=== PATIENT | male | born 1970 | race Hispanic/Latino ===

== ENCOUNTER 2019-09-01 18:44 | Inpatient (IN) | payer OTHER ==
[~2019-09-01] VITALS: Ht 172.7 cm; Wt 80.7 kg
--- OUTSIDE RECORDS SUMMARY | 2019-09-01 18:47 | XMS REPORT ---
Author Author [facility] Address Unknown Phone Unavailable Care Team Providers Care Hand Endband Cutter Name Role Phone Unavailable Unavailable Payers Payer Name Policy Type Policy Number Effective Date Expiration Date Problems This patient has no known problems. Allergies, Adverse Reactions, Alerts Allergy Name Allergy Type Status Severity Reaction(s) Onset Date Inactive Date Treating Clinician Comments No Known Allergies DA Active U 2018-08-24 00:00:00 No Known Allergies DA Active U 2017-09-12 00:00:00 Medications This patient has no known medications.
[2019-09-01] MEDS ORDERED: IPRATROPIUM BROMIDE 0.02% 2.5 ML NEB NEB STA (19:19)
[2019-09-01] MEDS ORDERED: ALBUTEROL SULF 0.083% NEB SOLN 3 ML NEB NEB STA (19:19)
--- NOTE | 2019-09-01 19:27 | NUR ---
called respiratory for neb tx
[2019-09-01] MEDS ORDERED: ASPIRIN 81 MG CHEW TAB PO ONE (19:30)
[2019-09-01] MEDS ORDERED: LISINOPRIL 20 MG TAB PO ONE (19:45)
--- NOTE | 2019-09-01 20:09 | Diagnostic Imaging Report ---
EXAMINATION: CHEST 2 VIEWS INDICATION: SOB, Cough. COMPARISON: None FINDINGS: TUBES and LINES: There is a cardiac loop recorder. LUNGS: Lungs are moderately inflated. There is patchy opacity in the left lower lobe. No evidence of pulmonary edema. PLEURA: No pleural effusion or pneumothorax. HEART AND MEDIASTINUM: The cardiomediastinal silhouette is mildly enlarged. BONES AND SOFT TISSUES: No acute osseous lesion. Soft tissues are unremarkable. UPPER ABDOMEN: No free air under the diaphragm. IMPRESSION: Patchy opacity in the left lower lobe, which may reflect atelectasis or early pneumonia in the appropriate clinical setting. Recommend follow-up chest radiograph in 6-8 weeks to assess for resolution. Bilateral bronchial wall thickening, suggestive of bronchitis. Mild cardiomegaly. Signed by: Dr. Diego Hawthorne MD on 09/01/2019 8:06 PM
[2019-09-01 20:17] LABS: BASOPHILS % 0.5 % (0.0-1.0); EOSINOPHILS # (AUTO) 0.2 (0.0-0.4); EOSINOPHILS % 3.2 % (0.0-6.0); HEMATOCRIT 46.9 % (38.2-49.6); HEMOGLOBIN 14.5 g/dL (14.0-18.0); LYMPHOCYTES # (AUTO) 1.3 (1.0-3.2); LYMPHOCYTES % 23.3 % (18.0-39.1); MEAN CORPUSCULAR HGB CONC 30.9 g/dL (31-35); MEAN CORPUSCULAR VOLUME 90.7 fL (81-99); MONOCYTES # (AUTO) 0.4 (0.2-0.8); MONOCYTES % 7.2 % (4.4-11.3); NEUTROPHILS # (AUTO) 3.7 (2.1-6.9); NEUTROPHILS % 65.6 % (38.7-80.0); PLATELET COUNT 156 x10e3/uL (140-360); RED BLOOD COUNT 5.17 x10e6/uL (4.3-5.7); RED CELL DISTRIBUTION WIDTH 13.5 % (11.7-14.4)
[2019-09-01 20:27] LABS: INR 0.88; PROTHROMBIN TIME 12.4 seconds (11.9-14.5)
[2019-09-01 20:28] LABS: PARTIAL THROMBOPLASTIN TIME 28.7 seconds (23.8-35.5)
[2019-09-01 20:38] LABS: ALANINE AMINOTRANSFERASE 28 IU/L (0-55); ALBUMIN 3.8 g/dL (3.5-5.0); ALBUMIN/GLOBULIN RATIO 1.3 (0.8-2.0); ALKALINE PHOSPHATASE 67 IU/L (40-150); ANION GAP 15.4 mmol/L (8-16); BLOOD UREA NITROGEN 30 mg/dL (7-26); BUN/CREATININE RATIO 15 (6-25); CALCIUM 9.4 mg/dL (8.4-10.2); CARBON DIOXIDE 28 mmol/L (22-29); CHLORIDE 102 mmol/L (98-107); CREATINE KINASE 49 IU/L (30-200); CREATININE, SERUM 1.99 mg/dL (0.72-1.25); EST GLOMERULAR FILTRATION RATE 36 ML/MIN (60-); GLUCOSE 201 mg/dL (74-118); POTASSIUM 4.4 mmol/L (3.5-5.1); SODIUM 141 mmol/L (136-145)
[2019-09-01] MEDS ORDERED: METOPROLOL TARTRATE INJ 1 MG/ML VIAL IV ONE (21:15)
[2019-09-01] MEDS ORDERED: ENOXAPARIN SODIUM INJ 100 MG/ML SYR SC ONE (21:15)
[2019-09-01] MEDS ORDERED: SODIUM CHLORIDE 0.9% 1000ML 1,000 ML IV STA (21:17)
[2019-09-01] MEDS ORDERED: SODIUM CHLORIDE 0.9% 1000ML 1,000 ML IV ONE (21:30)
[2019-09-01] MEDS ORDERED: ENOXAPARIN INJ 80 MG/0.8 ML SYR SC ONE ×2 (21:38→23:15)
[2019-09-01] MEDS: CEFTRIAXONE SOD 1 GM/NS 50 ML 50 ML IV SCH (21:56)
[2019-09-01 22:46] VITALS: BP 134/94
[2019-09-01 22:57] VITALS: BP 134/94
[2019-09-01] MEDS ORDERED: DEXTROSE 50% SYRINGE 50 ML IV PRN (23:00)
[2019-09-01] MEDS: AZITHROMYCIN 500MG/NS 250 ML 250 ML IV SCH (23:29)
[2019-09-01] MEDS: METOPROLOL TARTRATE 25 MG TAB PO SCH (23:29)
[2019-09-02] VITALS (7 sets, daily range): BP systolic 121–134; BP diastolic 78–101
[2019-09-02] MEDS ORDERED: METFORMIN HCL500 MG PO (00:09)
[2019-09-02] MEDS ORDERED: PRINIVIL20 MG PO (00:09)
[2019-09-02] MEDS: LEVALBUTEROL HCL SOLN NEBU 0.63 MG/3 ML NEB INH PRN ×3 (00:20→18:51)
[2019-09-02] MEDS: IPRATROPIUM BROMIDE 0.02% 2.5 ML NEB NEB SCH ×5 (00:20→18:51)
[2019-09-02 01:46] LABS: CREATINE KINASE MB 1.5 ng/mL (0-5.0)
[2019-09-02 06:17] LABS: BASOPHILS % 0.2 % (0.0-1.0); EOSINOPHILS # (AUTO) 0.2 (0.0-0.4); EOSINOPHILS % 3.7 % (0.0-6.0); HEMOGLOBIN 13.2 g/dL (14.0-18.0); LYMPHOCYTES # (AUTO) 1.2 (1.0-3.2); LYMPHOCYTES % 28.2 % (18.0-39.1); MEAN CORPUSCULAR HEMOGLOBIN 28.4 pg (28-32); MEAN CORPUSCULAR HGB CONC 31.4 g/dL (31-35); MEAN CORPUSCULAR VOLUME 90.5 fL (81-99); MONOCYTES # (AUTO) 0.4 (0.2-0.8); MONOCYTES % 8.6 % (4.4-11.3); NEUTROPHILS # (AUTO) 2.4 (2.1-6.9); NEUTROPHILS % 59.1 % (38.7-80.0); RED BLOOD COUNT 4.64 x10e6/uL (4.3-5.7); RED CELL DISTRIBUTION WIDTH 13.5 % (11.7-14.4)
[2019-09-02 06:38] LABS: ALBUMIN 3.3 g/dL (3.5-5.0); ALBUMIN/GLOBULIN RATIO 1.3 (0.8-2.0); ANION GAP 11.5 mmol/L (8-16); CALCIUM 9.7 mg/dL (8.4-10.2); CREATININE, SERUM 1.69 mg/dL (0.72-1.25); POTASSIUM 4.5 mmol/L (3.5-5.1)
--- NOTE | 2019-09-02 06:47 | Diagnostic Imaging Report ---
EXAMINATION: CHEST SINGLE (PORTABLE) INDICATION: Pneumonia. COMPARISON: Chest radiograph 09/01/2019. FINDINGS: TUBES and LINES: There is a cardiac loop recorder. LUNGS: Lungs are moderately inflated. There is patchy opacity in the left lower lobe. Central vascular congestion. Bronchial wall thickening. PLEURA: No pleural effusion or pneumothorax. HEART AND MEDIASTINUM: The cardiomediastinal silhouette is mildly enlarged. BONES AND SOFT TISSUES: No acute osseous lesion. Soft tissues are unremarkable. UPPER ABDOMEN: No free air under the diaphragm. IMPRESSION: Patchy opacity in the left lower lobe, which may reflect atelectasis or early pneumonia in the appropriate clinical setting. Bilateral bronchial wall thickening, suggestive of bronchitis. Mild cardiomegaly with central vascular congestion. Signed by: Dr. Diego Hawthorne MD on 09/02/2019 6:44 AM
[2019-09-02 06:56] LABS: CREATINE KINASE MB 1.8 ng/mL (0-5.0)
[2019-09-02] MEDS: INSULIN REGULAR, HUMAN 100 UNIT/1 ML 3ML VIAL SQ SCH ×4 (07:30→21:04)
[2019-09-02] MEDS: AZITHROMYCIN 500MG/NS 250 ML 250 ML IV SCH (08:32)
[2019-09-02] MEDS: ASPIRIN 81 MG ENTERIC COATED PO SCH (08:32)
[2019-09-02] MEDS: METOPROLOL TARTRATE 25 MG TAB PO SCH ×2 (08:33→18:10)
[2019-09-02 09:12] LABS: PLATELET COUNT 117 x10e3/uL (140-360)
[2019-09-02] MEDS: GUAIFENESIN/CODEINE 10 ML CUP PO PRN ×2 (09:50→18:10)
[2019-09-02 14:34] LABS: CREATINE KINASE MB 1.9 ng/mL (0-5.0)
--- NOTE | 2019-09-02 19:42 | Consultation ---
DATE OF CONSULTATION: 09/02/2019 Cardiology Consult Note REASON FOR CONSULT: Atrial fibrillation. CHIEF COMPLAINT: Shortness of breath. HISTORY OF PRESENT ILLNESS: The patient is a 48-year-old man, known history of irregular heart rhythm and atrial fibrillation in the past, status post loop recorder, follows with Dr. Collier and Dr. Cadet as an outpatient, who presents with worsening shortness of breath and wheezing after developing a URI about a week ago, received breathing treatments in the ER and shortness of breath improved significantly, however, was noted to be in atrial fibrillation with RVR on presentation. The patient denies any chest pain, shortness of breath currently, orthopnea, PND, or lower extremity edema. PAST MEDICAL HISTORY: 1. Hypertension. 2. Diabetes. 3. Atrial fibrillation, now on anticoagulation. SOCIAL HISTORY: He does not smoke, drink, or abuse drugs. FAMILY HISTORY: Noncontributory. OUTPATIENT MEDICATIONS: Reviewed. ALLERGIES: REVIEWED. PHYSICAL EXAMINATION: VITAL SIGNS: Temperature afebrile, pulse 107, respiratory rate 18, blood pressure 121/89, and saturating 99% on room air. GENERAL: Well-developed, well-nourished, no acute distress. CARDIOVASCULAR: Tachycardic, irregular. No murmurs, rubs, or gallops. LUNGS: Clear to auscultation bilaterally. ABDOMEN: Soft, nontender, and nondistended. NEURO AND PSYCH: Alert and oriented to person, place, and time. Normal affect. INPATIENT MEDICATIONS: Reviewed. LABORATORY DATA: Reviewed. TELEMETRY DATA: Reviewed, shows atrial fibrillation with RVR. ASSESSMENT AND PLAN: 1. Paroxysmal atrial fibrillation. 2. Pneumonia. PLAN: We will up titrate his metoprolol. Continue Lovenox for full-dose anticoagulation. His CHADS-VASc score is 2, so ideally should be on anticoagulation. Thank you for this consult. We will continue to follow. MD KAELA Fuentes/CONNOR /[id number]
[2019-09-02] MEDS: CEFTRIAXONE SOD 1 GM/NS 50 ML 50 ML IV SCH (21:04)
[2019-09-03] VITALS (10 sets, daily range): BP systolic 109–138; BP diastolic 79–109
[2019-09-03] MEDS: IPRATROPIUM BROMIDE 0.02% 2.5 ML NEB NEB SCH ×3 (00:08→13:25)
[2019-09-03] MEDS: LEVALBUTEROL HCL SOLN NEBU 0.63 MG/3 ML NEB INH PRN ×3 (00:08→13:25)
[2019-09-03] MEDS: METOPROLOL TARTRATE 25 MG TAB PO SCH ×5 (00:10→23:59)
[2019-09-03 05:39] LABS: BASOPHILS % 0.4 % (0.0-1.0); EOSINOPHILS # (AUTO) 0.2 (0.0-0.4); EOSINOPHILS % 3.6 % (0.0-6.0); HEMATOCRIT 44.7 % (38.2-49.6); LYMPHOCYTES # (AUTO) 1.4 (1.0-3.2); LYMPHOCYTES % 26.6 % (18.0-39.1); MEAN CORPUSCULAR HEMOGLOBIN 28.6 pg (28-32); MEAN CORPUSCULAR HGB CONC 31.3 g/dL (31-35); MEAN CORPUSCULAR VOLUME 91.2 fL (81-99); MONOCYTES # (AUTO) 0.3 (0.2-0.8); MONOCYTES % 6.3 % (4.4-11.3); NEUTROPHILS # (AUTO) 3.2 (2.1-6.9); NEUTROPHILS % 62.7 % (38.7-80.0); PLATELET COUNT 137 x10e3/uL (140-360); RED CELL DISTRIBUTION WIDTH 13.5 % (11.7-14.4)
[2019-09-03 05:56] LABS: ALBUMIN 3.6 g/dL (3.5-5.0); ALBUMIN/GLOBULIN RATIO 1.2 (0.8-2.0); ANION GAP 12.5 mmol/L (8-16); CREATININE, SERUM 1.74 mg/dL (0.72-1.25); POTASSIUM 4.5 mmol/L (3.5-5.1)
[2019-09-03] MEDS: GUAIFENESIN/CODEINE 10 ML CUP PO PRN ×2 (06:02→17:06)
[2019-09-03 06:32] LABS: PLATELET ESTIMATE MODERATELY DECREASED; PLATELET MORPHOLOGY COMMENT FEW LARGE; RBC MORPHOLOGY COMMENT NORMAL
--- NOTE | 2019-09-03 07:17 | NUR ---
SPOKE TO MD TOWNSEND REGARDING MORNING BP OF 138/109 HR 101 MD ORDERED TO WATCH FOR NOW
[2019-09-03] MEDS: INSULIN REGULAR, HUMAN 100 UNIT/1 ML 3ML VIAL SQ SCH ×4 (08:25→20:18)
[2019-09-03] MEDS: LISINOPRIL 20 MG TAB PO SCH ×2 (08:25→20:30)
[2019-09-03] MEDS: AZITHROMYCIN 500MG/NS 250 ML 250 ML IV SCH (08:48)
[2019-09-03] MEDS: ASPIRIN 81 MG ENTERIC COATED PO SCH (08:48)
--- NOTE | 2019-09-03 11:47 | NUR ---
spoke with md hendrix regarding bp diastolic remaining high orders to given prn hydralazine times one 10mg iv
[2019-09-03] MEDS ORDERED: HYDRALAZINE HCL 20 MG/ML VIAL IV ONE (12:00)
--- NOTE | 2019-09-03 16:00 | NUR ---
PAGED MD BURRIS FOR ORDERS REGARDING PT TACHYCARDIA AWAITING FOR CALL BACK
--- NOTE | 2019-09-03 16:30 | NUR ---
SPOKE WITH KRISTIAN ABOUT TACHYCARDIA MD ORDERS TO STOP NEBZ FOR NOW
[2019-09-03] MEDS: FUROSEMIDE INJ 10 MG/ML 4 ML VIAL IV SCH (19:03)
--- NOTE | 2019-09-03 19:40 | Progress Note ---
DATE: Cardiology Progress Note SUBJECTIVE: The patient still reports cough, however, his shortness of breath has improved. OBJECTIVE: VITAL SIGNS: Temperature is 97.9, heart rate is 112, ox saturation is 97%, respirations are 18, and blood pressure is 124/90. GENERAL: Well appearing, in no apparent distress. NECK: Jugular venous distention is present. CARDIOVASCULAR: Tachycardic, regular rate. Systolic murmur at the left sternal border. LUNGS: Scattered rales at bases. ABDOMEN: Soft, mildly distended. EXTREMITIES: No edema. CARDIOVASCULAR MEDICATIONS: Reviewed. LABORATORY DATA: Reviewed. Echocardiogram shows ejection fraction of 20% to 25%. IMPRESSION: 1. Acute systolic congestive heart failure. 2. Paroxysmal atrial fibrillation. 3. Pneumonia. 4. Chronic kidney disease. RECOMMENDATIONS: Echocardiogram reviewed showed ejection fraction of 20% to 25%. Aortic valve was not well visualized, however, suspect there is pseudo-aortic stenosis given low ejection fraction. Transaortic gradients were not severe. Possibly we will need a transesophageal echocardiogram for further delineation of the valve anatomy. I will start him on Lasix 40 mg IV q.12 hours. Continue beta-blockers and lisinopril. He will likely need a LifeVest prior to discharge. Justin Winchester DO BM/MODL /[id number]
[2019-09-03] MEDS: CEFTRIAXONE SOD 1 GM/NS 50 ML 50 ML IV SCH (21:02)
--- NOTE | 2019-09-03 21:40 | NUR ---
Assessment done.no pain voiced.no resp.distress.ambulates.iv to left ac #20 is patent.bed locked and in lowest position.phone and call light within reach.instructed to call for assistance as needed.
[2019-09-04] VITALS (8 sets, daily range): BP systolic 122–142; BP diastolic 94–111
[2019-09-04] MEDS: METOPROLOL TARTRATE 25 MG TAB PO SCH ×4 (05:48→23:38)
[2019-09-04] MEDS: FUROSEMIDE INJ 10 MG/ML 4 ML VIAL IV SCH ×2 (05:51→17:36)
--- NOTE | 2019-09-04 07:00 | NUR ---
Bed side shift report given to the oncoming Rn.stable condition.
[2019-09-04] MEDS: INSULIN REGULAR, HUMAN 100 UNIT/1 ML 3ML VIAL SQ SCH ×4 (07:30→21:21)
[2019-09-04 07:42] LABS: ANION GAP 15.7 mmol/L (8-16); CALCIUM 10.3 mg/dL (8.4-10.2); CREATININE, SERUM 2.02 mg/dL (0.72-1.25); POTASSIUM 4.7 mmol/L (3.5-5.1)
[2019-09-04] MEDS: LISINOPRIL 20 MG TAB PO SCH ×2 (08:24→21:20)
[2019-09-04] MEDS: AZITHROMYCIN 500MG/NS 250 ML 250 ML IV SCH (08:24)
[2019-09-04] MEDS: ASPIRIN 81 MG ENTERIC COATED PO SCH (08:24)
--- NOTE | 2019-09-04 10:51 | NUR ---
ED ROUNDED AND STATES PT WILL NEED EDIS TOMORROW OR TUESDAY DEPENDING ON SCHEDULE . WILL LET ME KNOW WHEN LATER ON TODAY PT WILL NEED LIFE VEST , SAID TO WAIT TO ORDER LATER FOR PT WILL BE HERE FOR A COUPLE MORE DAYS ORDERED STRICT I+O FOR LASIX TREATMENT STARTED YESTERDAY
--- NOTE | 2019-09-04 17:56 | Progress Note ---
DATE: Cardiology Progress Note SUBJECTIVE: Patient reports overall feeling better. His shortness of breath has improved. No chest pain. OBJECTIVE: VITAL SIGNS: Temperature is 98.4, heart rate is ranging from 84 to 110, blood pressure is 123/94, and oxygen saturation 95% on room air, respirations are 20. GENERAL: Well appearing, no apparent distress. CARDIOVASCULAR: Regular rhythm. Tachycardic. Systolic murmur at the left sternal border. LUNGS: Diminished breath sounds with rales. ABDOMEN: Soft, mildly distended, nontender. EXTREMITIES: No edema. MEDICATIONS: Cardiovascular medications reviewed include metoprolol, lisinopril, aspirin, Lasix. LABORATORY DATA: Reviewed. Creatinine is 2.2. Telemetry monitoring revealed sinus tachycardia. IMPRESSION: 1. Acute systolic congestive heart failure. 2. Paroxysmal atrial fibrillation. 3. Aortic valve abnormality. 4. Pneumonia. 5. Ogems-pj-rjofxcf kidney disease. RECOMMENDATIONS: His echocardiogram was again reviewed. It shows severe left ventricular systolic dysfunction. Aortic valve was not well visualized, however, appears abnormal. Recommend transesophageal echocardiography. Continue current cardiovascular medications including Lasix for diuresis. Monitor creatinine closely. The patient's tachycardia is likely related to his decompensated heart failure. The patient will need a LifeVest prior to discharge. DO AILEEN Rosa/MODL /[id number]
--- NOTE | 2019-09-04 18:55 | NUR ---
Bed side shift report taken from morning Rn.stable condition.
[2019-09-04] MEDS: CEFTRIAXONE SOD 1 GM/NS 50 ML 50 ML IV SCH (21:20)
--- NOTE | 2019-09-04 23:55 | NUR ---
Resting well .no pain voiced.advised npo after midnight.
[2019-09-05] VITALS (9 sets, daily range): BP systolic 99–125; BP diastolic 80–105
[2019-09-05] MEDS: METOPROLOL TARTRATE 25 MG TAB PO SCH ×4 (05:34→23:56)
[2019-09-05] MEDS: FUROSEMIDE INJ 10 MG/ML 4 ML VIAL IV SCH ×2 (05:56→17:26)
--- NOTE | 2019-09-05 07:00 | NUR ---
Bed side shift report given to the oncoming Rn.stable condition.
[2019-09-05] MEDS: INSULIN REGULAR, HUMAN 100 UNIT/1 ML 3ML VIAL SQ SCH ×4 (07:30→21:43)
[2019-09-05] MEDS: LISINOPRIL 20 MG TAB PO SCH ×2 (08:00→20:00)
[2019-09-05] MEDS: AZITHROMYCIN 500MG/NS 250 ML 250 ML IV SCH (08:55)
[2019-09-05] MEDS ORDERED: SODIUM CHLORIDE 0.9% 1000ML 1,000 ML ONE (10:57)
[2019-09-05] MEDS ORDERED: BENZOCAINE 20% SPR 60 ML CAN ONE (10:57)
--- NOTE | 2019-09-05 11:20 | NUR ---
Taken for EDIS. No s/s of acute distress noted.
[2019-09-05] MEDS ORDERED: FENTANYL CITRATE/PF 100MCG/2 ML INJ ONE (11:33)
[2019-09-05] MEDS ORDERED: MIDAZOLAM HCL 2 MG/2 ML VIAL ONE (11:34)
--- NOTE | 2019-09-05 12:16 | NUR ---
1216Pt Received #9Bedside Report from Adilene. Identfierx2. Back to baseline orientation.Oriented and appropriate.PERRLA,respirations even and unlabored on RA.Pulsesx4 PPx4PT/DP and marked.Cap refll brisk<[address] in [address] s/p EDIS un eventful via Mac sedation may return to floor care when fully awake Able to eat at 1515pm. Skin warm and dry, integrity appears intact. IVg#20 arm. device.Presents healthy w/o s/s of infiltration or complaint.Abdomen soft and sutepple,pt offered toileting,denies need to urinate or defecate. No personal affects with patient. No family at bedside. Pt verbalize understanding of care. Currently w/o pain or need. ds/rn
--- NOTE | 2019-09-05 12:49 | NUR ---
___1120____ - pt received for EDIS, placed on bedside monitoring. pt positioned for procedure. IV site patent to ___RAC____ , VS ___Stable , ___afib rhythm ____1131___ - all responsible staff present, Timeout performed 1137 __ - hurricaine spray (spray 1) to oral cavity by XX ___1139____ - hurricaine spray (spray 2) to oral cavity by XX ___1159____ - bite block positioned and EDIS probe passed ____1204___ - agitated saline injected for bubble study ___1208____ - EDIS probe removed , no gross trauma or distress observed ___1210____ - pt taken to ___[facility] holding room 9 for further recovery
--- NOTE | 2019-09-05 13:05 | NUR ---
Back from procedure. AAOX4 to time, person, place, situation. Respirations even and unlabored.
--- NOTE | 2019-09-05 13:10 | NUR ---
1310 pt back to baseline orientation.Report phoned to Birgit and face to face report to Rekha MODI No gross issues pain,pallor or dysrhythmia. ds/rn
[2019-09-05] MEDS: ASPIRIN 81 MG ENTERIC COATED PO SCH (13:21)
--- NOTE | 2019-09-05 13:44 | NUR ---
spoke with [employer] telemarketing representative. States "either Giovani or myself will stop by tomorrow to get patient's information."
[2019-09-05] MEDS ORDERED: ACETAMINOPHEN 325 MG TAB PO PRN (14:30)
[2019-09-05 14:58] LABS: ALBUMIN 3.5 g/dL (3.5-5.0); ALBUMIN/GLOBULIN RATIO 1.1 (0.8-2.0); ANION GAP 13.6 mmol/L (8-16); CALCIUM 9.4 mg/dL (8.4-10.2); CREATININE, SERUM 2.13 mg/dL (0.72-1.25); POTASSIUM 4.6 mmol/L (3.5-5.1)
[2019-09-05] MEDS ORDERED: TRAMADOL HCL 50 MG TAB PO PRN (15:15)
--- NOTE | 2019-09-05 17:00 | NUR ---
Paged to notify of lab results. Awaiting call back
--- NOTE | 2019-09-05 18:02 | Progress Note ---
DATE: Cardiology Progress Note SUBJECTIVE: The patient underwent transesophageal echocardiography today. OBJECTIVE: VITAL SIGNS: Temperature is 97.6, heart rate is 119, oxygen saturation is 99% on room air. Blood pressure is 103/89, respirations are 16. GENERAL: Well appearing, no apparent distress. CARDIOVASCULAR: Regular rhythm, tachycardic. LUNGS: Diminished breath sounds at bases. ABDOMEN: Soft, nontender, nondistended. EXTREMITIES: No edema. CARDIOVASCULAR MEDICATIONS: Reviewed. LABORATORY DATA: Reviewed. Creatinine is 2.1. TELEMETRY: Monitoring revealed sinus tachycardia. IMPRESSION: 1. Acute systolic congestive heart failure. 2. Paroxysmal atrial fibrillation. 3. Bicuspid aortic valve. 4. Pneumonia. 5. Acute on chronic kidney disease. RECOMMENDATIONS: Dr. Le performed his transesophageal echocardiogram today. The aortic valve is opening well, however, is bicuspid with mild calcifications. He remains tachycardic. We will add digoxin low-dose for better heart rate control. Continue to titrate metoprolol. Continue Lasix for diuresis. We will have to monitor creatinine closely. He will likely require cardiac catheterization. However, his creatinine continues to worsen so we need to ensure stability prior to heart catheterization. He will need a LifeVest prior to discharge. Justin Winchester DO BM/MODL /[id number]
--- NOTE | 2019-09-05 19:05 | NUR ---
Received report from day nurse. Patient is resting comfortably in bed. Bed is in lowest position and call holt is within reach. Will continue to monitor patient.
--- NOTE | 2019-09-05 19:10 | NUR ---
Report given to oncoming nurse of patient's status. Resting in bed. No s/s of acute distress noted. Side rails upx2, call light within reach, family at bedside.
[2019-09-05] MEDS ORDERED: SODIUM CHLORIDE 0.9% 250ML 250 ML ONE (20:52)
[2019-09-05] MEDS: CEFTRIAXONE SOD 1 GM/NS 50 ML 50 ML IV SCH (21:16)
[2019-09-06] VITALS (9 sets, daily range): BP systolic 112–127; BP diastolic 82–109
[2019-09-06] MEDS: FUROSEMIDE INJ 10 MG/ML 4 ML VIAL IV SCH ×2 (05:09→18:03)
[2019-09-06] MEDS: METOPROLOL TARTRATE 25 MG TAB PO SCH ×3 (05:09→18:00)
[2019-09-06 05:40] LABS: BASOPHILS % 0.3 % (0.0-1.0); EOSINOPHILS # (AUTO) 0.2 (0.0-0.4); HEMATOCRIT 47.5 % (38.2-49.6); HEMOGLOBIN 15.3 g/dL (14.0-18.0); LYMPHOCYTES # (AUTO) 1.4 (1.0-3.2); LYMPHOCYTES % 21.6 % (18.0-39.1); MEAN CORPUSCULAR HEMOGLOBIN 28.2 pg (28-32); MEAN CORPUSCULAR HGB CONC 32.2 g/dL (31-35); MEAN CORPUSCULAR VOLUME 87.6 fL (81-99); MONOCYTES # (AUTO) 0.6 (0.2-0.8); MONOCYTES % 9.4 % (4.4-11.3); NEUTROPHILS # (AUTO) 4.2 (2.1-6.9); NEUTROPHILS % 65.5 % (38.7-80.0); PLATELET COUNT 177 x10e3/uL (140-360); RED BLOOD COUNT 5.42 x10e6/uL (4.3-5.7); RED CELL DISTRIBUTION WIDTH 13.3 % (11.7-14.4)
[2019-09-06 05:59] LABS: ALBUMIN 3.7 g/dL (3.5-5.0); ALBUMIN/GLOBULIN RATIO 1.1 (0.8-2.0); ANION GAP 14.1 mmol/L (8-16); CALCIUM 9.7 mg/dL (8.4-10.2); CREATININE, SERUM 2.2 mg/dL (0.72-1.25); POTASSIUM 4.1 mmol/L (3.5-5.1)
[2019-09-06] MEDS: METHYLPREDNISOLONE SOD SUCC 40 MG/ML VIAL 1ML IV SCH ×3 (06:03→22:19)
--- NOTE | 2019-09-06 06:09 | NUR ---
Dr Awan's answering service notified of routine consultation. awaiting call back from physician.
--- NOTE | 2019-09-06 06:55 | NUR ---
report given to day nurse, patient is resting comfortably in bed. bed is in lowest position and call holt is within reach.
[2019-09-06] MEDS: INSULIN REGULAR, HUMAN 100 UNIT/1 ML 3ML VIAL SQ SCH ×4 (07:30→21:00)
--- NOTE | 2019-09-06 07:45 | NUR ---
SPOKE WITH DR CHRISTIANSON TO CLARIFY IF PT IS HAVING HEART CATH TODAY OR NOT, STATES HE WILL HAVE DR WARD CALL ME BACK, PT NOTIFIED, PT STATES HE IS EATING REGARDLESS, PT EDUCATED THAT MD MAY DO HEART CATH, PT STATES HE IS STILL EATING
[2019-09-06] MEDS: AZITHROMYCIN 500MG/NS 250 ML 250 ML IV SCH (09:55)
[2019-09-06] MEDS: ASPIRIN 81 MG ENTERIC COATED PO SCH (09:55)
[2019-09-06] MEDS: LISINOPRIL 20 MG TAB PO SCH ×2 (09:55→22:20)
--- NOTE | 2019-09-06 10:04 | NUR ---
SPOKE WITH TIMOTHY AT MD YEE OFFICE, AWARE OF CONSULT
--- NOTE | 2019-09-06 13:01 | Progress Note ---
DATE: Cardiology Progress Note SUBJECTIVE: The patient is feeling overall better. Reports right ankle pain. Respirations and breathing have improved. OBJECTIVE: VITAL SIGNS: Temperature is 97.4, heart rate is 120s, blood pressure is , ox saturation is 99% on room air. GENERAL: Well appearing, no apparent distress. CARDIOVASCULAR: Tachycardic, irregular rhythm. Systolic murmur at the left and right sternal borders. LUNGS: Diminished breath sounds at the bases. ABDOMEN: Soft, nontender, nondistended. EXTREMITIES: No edema. Mild erythema of the right ankle. MEDICATIONS: Cardiovascular medications reviewed include metoprolol tartrate, lisinopril, aspirin, Lasix. LABORATORY DATA: Hemoglobin is 15.3, creatinine is 2.2, glucose is 363. IMPRESSION: 1. Acute systolic congestive heart failure. 2. Paroxysmal atrial fibrillation. 3. Bicuspid aortic valve with calcification. 4. Pneumonia. 5. Acute on chronic kidney disease. RECOMMENDATIONS: On review of the transesophageal echocardiogram, the aortic valve is calcified with moderately restricted opening. Valve is bicuspid. Continue to up titrate his beta-blockers as tolerated. Can give digoxin for heart rate reduction. Continue lisinopril and Lasix. However, we will need to monitor his creatinine very closely. Continue to monitor his ins and outs. He will need cardiac catheterization to delineate his coronary anatomy and possibly an aortic valve assessment with crossing the valve and measuring pressures in the left ventricular cavity and the aorta. He will need a LifeVest prior to discharge. Justin Winchester DO BM/MODL /[id number]
--- NOTE | 2019-09-06 13:57 | NUR ---
Received order from Dr. Awan to transfer Mr Sr to a higher level of care. Spoke with patient, he chooses [facility]. Placed signed choice letter on chart. Called [facility] Transfer center [phone] - Jolly Denise, who states transfer has been initiated by Dr. Awan's office. Also Jolly states Dr Awan will be a territory sales consultant there and medicine will be the accepting MD d/t multiple comorbidities. Provided IM Dr. Lauren's contact info for doc to doc. Faxed facesheet and H&P to [facility] @ [phone]. Provided Cm's number and Med/surg 1's number. Addendum: 09/06/19 at 1425 by Deidre Zamora CM MOT initiated, signed by patient. placed on chart.
--- NOTE | 2019-09-06 15:28 | NUR ---
Nutrition Screen Note RD Recommendation for Physician: -Recommend cardiac/diabetic diet Plan of Care: RD following, monitoring for tolerance and adequacy Nutrition reason for involvement: Length of stay Primary Diagnose(s): afib with RVR, pneumonia, renal insufficiency PMH: HTN, diabetes, afib Ht: 68 in Wt:178 lb BMI:27.1 kg/m2 IBW:[address] Assessment: (09/06/19) Chart reviewed. Labs and meds reviewed. Pt is a 48 year old male admitted with afib with RVR, pneumonia, and renal insufficiency. Pt stated he has a good appetite and eating >50% of meals. Per documentation in chart, pt has mainly been consuming 75-100% of meals. Pt mentioned he usually weighs 175-178 lbs. Pt currently has a wt of 178 lbs in chart. No N/V/D/C reported and no chewing/swallowing issues. Will continue to monitor. Current Diet: Cardiac Diet Malnutrition Evaluation (09/06/19) The patient does not meet criteria for a specified degree of malnutrition at this time. Will re-evaluate at follow-up as appropriate. Diet Education Needs Assessment: Pt was not interested in diet education Nutrition Care Level: Low Signed: Madison Mohan, RD, LD
--- NOTE | 2019-09-06 16:09 | NUR ---
provided more clinical info to Jolly at [facility] - she states only waiting on a bed now. LY Nash notified
--- NOTE | 2019-09-06 16:51 | NUR ---
LIFE VEST SINGING MESSENGER HERE TO SEE PT, NOTIFIED NOT TO PLACE VEST HERE PER DR TOWNSEND, NOTIFIED DR TOWNSEND OF ELEVATED GLUCOSE 384 AND 12UNITS UNITS PER SS Addendum: 09/06/19 at 1654 by Micaela Victoria RN NO NEW ORDERS AT THIS TIME, MONITOR AT THIS TIME
--- NOTE | 2019-09-06 17:09 | NUR ---
PT TOLERATING PO INTAKE AT THIS TIME, DENIES ANY CHEST PAIN AT THIS TIME, STATES "FOOT PAIN BETTER AT THIS TIME", CALL LIGHT WITHIN REACH
--- NOTE | 2019-09-06 18:25 | NUR ---
PT SHOWERED , NOW VISITING WITH FAMILY, DENIES PAIN AT THIS TIME,
--- NOTE | 2019-09-06 19:00 | NUR ---
received report from day nurse. patient is resting comfortably in bed. Patient is pending transfer to [facility]. Waiting for room to become available prior to transfer.
[2019-09-06] MEDS ORDERED: LIDOCAINE HCL 2% LOCAL INJ 5 ML SDV VIAL INJ ONE (19:15)
[2019-09-06] MEDS ORDERED: PROPOFOL IV EMULSION 10 MG/ML 20 ML VIAL ONE (19:15)
[2019-09-06] MEDS ORDERED: GLYCOPYRROLATE INJ 1MG/ 5 ML SYR ONE (19:15)
[2019-09-06] MEDS: CEFTRIAXONE SOD 1 GM/NS 50 ML 50 ML IV SCH (22:19)
[2019-09-07] MEDS: METOPROLOL TARTRATE 25 MG TAB PO SCH ×2 (00:28→05:17)
[2019-09-07 03:58] VITALS: BP 104/67
[2019-09-07] MEDS: METHYLPREDNISOLONE SOD SUCC 40 MG/ML VIAL 1ML IV SCH ×2 (05:17→14:20)
[2019-09-07] MEDS: FUROSEMIDE INJ 10 MG/ML 4 ML VIAL IV SCH ×2 (05:17→18:28)
--- NOTE | 2019-09-07 06:09 | NUR ---
Spoke with Amelia from [facility]. Amelia states that at this time facility is still waiting for an available bed as well as an accepting physician. When bed and physician are located Amelia will contact us back.
--- NOTE | 2019-09-07 06:59 | NUR ---
report given to day nurse. patient is resting in bed. bed is in lowest position and call light is within reach.
--- NOTE | 2019-09-07 07:00 | NUR ---
BEDSIDE SHIFT REPORT RECEIVED FROM NIGHT RN. PT DENIES NEEDS AT THIS TIME.
[2019-09-07 07:58] VITALS: BP 127/89
[2019-09-07] MEDS: INSULIN REGULAR, HUMAN 100 UNIT/1 ML 3ML VIAL SQ SCH ×4 (07:59→20:18)
[2019-09-07 08:00] VITALS: BP 127/89
[2019-09-07] MEDS: ASPIRIN 81 MG ENTERIC COATED PO SCH (08:09)
[2019-09-07] MEDS: LISINOPRIL 20 MG TAB PO SCH ×2 (08:09→20:11)
[2019-09-07] MEDS: AZITHROMYCIN 500MG/NS 250 ML 250 ML IV SCH (08:09)
[2019-09-07 11:28] VITALS: BP 127/91
--- NOTE | 2019-09-07 11:50 | NUR ---
DR. TOWNSEND CONTACTED ABOUT PT'S BG OF 553. ORDER TO GIVE 15 ADDITIONAL UNITS.
[2019-09-07] MEDS ORDERED: INSULIN REGULAR, HUMAN 100 UNIT/1 ML 3ML VIAL SQ ONE (12:00)
[2019-09-07 12:55] LABS: ANION GAP 17.7 mmol/L (8-16); CALCIUM 9.7 mg/dL (8.4-10.2); CREATININE, SERUM 2.56 mg/dL (0.72-1.25)
[2019-09-07 13:04] LABS: POTASSIUM 5.7 mmol/L (3.5-5.1)
--- NOTE | 2019-09-07 13:30 | NUR ---
ASSESSMENT: Spiritual concern Visit made by VICTOR MANUEL Skinner. Pt identified as Baptist. Pt's at bedside. Intervention: Car Seat Maker provided unhurried pastoral presence and prayer. Car Seat Maker informed pt of availability of make up arranger. Outcome: Pt expressed appreciation for visit. ESTELITA John Spiritual Care Department O: [phone] Pager: [phone] ([phone] number calling from)
[2019-09-07] MEDS ORDERED: METOPROLOL TARTRATE 25 MG TAB PO SCH (14:00)
[2019-09-07] MEDS ORDERED: METOPROLOL TARTRATE 50 MG TAB PO SCH (14:00)
--- NOTE | 2019-09-07 14:51 | NUR ---
F/U PHONE CALL TO [facility] [phone] SPOKE WITH STEVE MONTANEZ STATES PT HAS A ROOM; THEY ARE NOW TRYING TO SECURE AN ACCEPTING PHYSICIAN UPDATED HOUSE SUP TIA ON PROGRESS MOT IN HOUSE SUPS OFFICE
[2019-09-07 15:31] VITALS: BP 139/105
--- NOTE | 2019-09-07 17:10 | NUR ---
DR. TOWNSEND CALLED TO LET THIS NURSE KNOW HE HAS TALKED TO TRANSFER CENTER AND EVERYTHING IS SET FOR PT TO [facility].
--- NOTE | 2019-09-07 18:02 | NUR ---
CALLED AND SPOKE TO STEVE AT TRANSFER CENTER. I WAS TOLD WHEN SHE HAD A NURSE THAT COULD TAKE REPORT, SHE WOULD CALL.
--- NOTE | 2019-09-07 19:39 | Progress Note ---
DATE: Cardiology Progress Note SUBJECTIVE: The patient feeling better. Denies any chest pain and shortness of breath has improved. OBJECTIVE: VITAL SIGNS: Temperature is 97.8, heart rate is 105, respirations are 16, blood pressure is 128/91, oxygen saturation is 100% on room air. GENERAL: Well appearing, no apparent distress. CARDIOVASCULAR: Regular rhythm with ectopy and tachycardia. Systolic murmur at the left and right sternal borders. LUNGS: Diminished breath sounds at bases. ABDOMEN: Soft, nontender, nondistended. EXTREMITIES: No clubbing, cyanosis, or edema. MEDICATIONS: Cardiovascular medications include metoprolol, lisinopril, aspirin, Lasix. TELEMETRY: Monitoring revealed sinus tachycardia with PVCs. IMPRESSION: 1. Acute systolic congestive heart failure. 2. Paroxysmal atrial fibrillation. 3. Premature ventricular complexes. 4. Bicuspid aortic valve with calcifications leading to moderate stenosis. 5. Pneumonia. 6. Acute on chronic kidney disease. RECOMMENDATIONS: Continue current cardiovascular medications with up titration of his metoprolol to 50 q.8. Can use digoxin for heart rate control as needed. Continue lisinopril, Lasix, however, we will need to continue to monitor his creatinine very closely. A transfer has been initiated to the [facility] for higher level of care. DO AILEEN Rosa/CONNOR /[id number]
[2019-09-07 19:45] VITALS: BP 126/95
--- NOTE | 2019-09-10 06:33 | Discharge Summary ---
DISCHARGE DIAGNOSES: 1. Pneumonia. 2. Chronic kidney disease stage 3. 3. Diabetes. 4. Bicuspid aortic valve. 5. Acute systolic heart failure. 6. Atrial fibrillation with rapid ventricular response, converted to normal sinus rhythm. DISPOSITION: The patient was transferred downtow to [facility] under the care of Dr. Awan for possible valve replacement. HISTORY OF PRESENT ILLNESS AND HOSPITAL COURSE: See hospital chart for full details. The patient is a gentleman, who presented with cough and congestion, was found to be having pneumonia as well as atrial fibrillation with RVR. He was brought in, placed on IV antibiotics, and medications for his atrial fibrillation, converted back to normal sinus rhythm quickly. He was noticed then to have an echo showing an EF of 20% with aortic valve area of approximately 49 cm. So, Cardiology was consulted, who then performed a EDIS confirming the reduced ejection fraction as well as wkeobsnu-wt-fayyze aortic stenosis. After having a long talk with the patient, the patient's pneumonia resolved. He remained fairly asymptomatic, but he did have a consult with Dr. Awan, who along with the patient felt like the best course of action was to transfer the patient down in [facility] for further course, evaluate, and the patient would benefit for either aortic valve replacement due to the reduced ejection fraction. Please see hospital chart for full details. MD STANLEY Gallardo/CONNOR /[id number]
== END 2019-09-07 20:56 | disposition short-term general hospital (02) | DRG 193 ==
LOC: ER 18:44 → ERHOLD 21:32 → MED/SURG 22:25
PROVIDERS: ADMIT Internal Medicine; ATTEND Internal Medicine
DX: J15.9 Unspecified bacterial pneumonia (principal); I50.21 Acute systolic (congestive) heart failure; I13.0 Hypertensive heart and chronic kidney disease with heart failure and stage 1 through stage 4 chronic kidney disease, or unspecified chronic kidney disease; N17.9 Acute kidney failure, unspecified; I42.9 Cardiomyopathy, unspecified; I70.0 Atherosclerosis of aorta; I48.0 Paroxysmal atrial fibrillation; N18.3 Chronic kidney disease, stage 3 (moderate); Z95.4 Presence of other heart-valve replacement; E11.22 Type 2 diabetes mellitus with diabetic chronic kidney disease; Z79.4 Long term (current) use of insulin; I35.0 Nonrheumatic aortic (valve) stenosis
CPT/HCPCS: 36415; 71045; 71046; 80048; 80053; 82550; 82553; 82948; 83735; 83880; 84443; 84484; 85025; 85379; 85610; 85730; 87040; 93005; 93306; 93307; 93312; 93325; 94640; 96372; 99284; J0360; J0456; J0696; J1650; J1817; J1940; J2001; J2250; J2920; J3010; J7030; J7050

== ENCOUNTER 2020-04-09 11:43 | Emergency (ER) | payer SELFPAY ==
[~2020-04-09] VITALS: Ht 172.7 cm; Wt 80.7 kg
[~2020-04-09 11:43] MED LIST: METFORMIN HCL500 MG PO; PRINIVIL20 MG PO
[2020-04-09] MEDS ORDERED: SODIUM CHLORIDE 0.9% 1000ML 1,000 ML IV STA ×2 (11:56→13:54)
[2020-04-09] MEDS ORDERED: METOPROLOL TARTRATE 25 MG TAB PO ONE (12:00)
[2020-04-09] MEDS ORDERED: ASPIRIN 81 MG CHEW TAB PO ONE (12:00)
[2020-04-09 12:46] LABS: BASOPHILS % 0.6 % (0.0-1.0); EOSINOPHILS # (AUTO) 0.2 (0.0-0.4); EOSINOPHILS % 5.4 % (0.0-6.0); HEMATOCRIT 46.7 % (38.2-49.6); HEMOGLOBIN 15.6 g/dL (14.0-18.0); LYMPHOCYTES # (AUTO) 0.6 (1.0-3.2); LYMPHOCYTES % 18.6 % (18.0-39.1); MEAN CORPUSCULAR HEMOGLOBIN 29.1 pg (28-32); MEAN CORPUSCULAR HGB CONC 33.4 g/dL (31-35); MEAN CORPUSCULAR VOLUME 87.1 fL (81-99); MONOCYTES # (AUTO) 0.4 (0.2-0.8); MONOCYTES % 14.1 % (4.4-11.3); NEUTROPHILS # (AUTO) 1.9 (2.1-6.9); PLATELET COUNT 136 x10e3/uL (140-360); RED BLOOD COUNT 5.36 x10e6/uL (4.3-5.7); RED CELL DISTRIBUTION WIDTH 13.8 % (11.7-14.4)
[2020-04-09 12:56] LABS: INR 0.81; PROTHROMBIN TIME 11.6 seconds (11.9-14.5)
[2020-04-09 12:57] LABS: PARTIAL THROMBOPLASTIN TIME 26.1 seconds (23.8-35.5)
[2020-04-09 13:05] LABS: ALBUMIN/GLOBULIN RATIO 0.8 (0.8-2.0); ANION GAP 16.9 mmol/L (8-16); CALCIUM 8.8 mg/dL (8.4-10.2); CREATININE, SERUM 2.49 mg/dL (0.72-1.25); MAGNESIUM 1.8 MG/DL (1.3-2.1); POTASSIUM 3.9 mmol/L (3.5-5.1)
[2020-04-09 13:11] LABS: CREATINE KINASE MB 1.7 ng/mL (0-5.0)
--- NOTE | 2020-04-09 13:59 | Diagnostic Imaging Report ---
TECHNIQUE: Frontal view of the chest. INDICATION: ^Y ^COUGH, SOB, H/O CHF ^[id number] ^[id number] COMPARISON: 09/02/2019 IMPRESSION: Lines and hardware: Stable. Heart and mediastinum: Stable. Lungs and pleura: No focal airspace consolidation. No pleural effusion. No pneumothorax. Soft tissues and bones: No acute abnormality. Signed by: Chino Tracy MD on 04/09/2020 1:56 PM
[2020-04-09] MEDS ORDERED: INSULIN REGULAR, HUMAN 100 UNIT/1 ML 3ML VIAL IV ONE (14:00)
[2020-04-09] MEDS ORDERED: NITROGLYCERIN 2% OINT 1 GM PKT TOP ONE (14:15)
--- NOTE | 2020-04-09 14:52 | Emergency Department Note ---
History of Present Illnes History of Present Illness Chief Complaint: General Medicine Complaints History of Present Illness This is a 49 year old male HERE FOR SHORTNESS OF BREATH, STATES THAT HE FEELS IT MIGHT BE YEH VIRUS. REPORTS A HISTORY OF A-FIB, REPORTS LEFT SIDED CHEST PAIN FOR A WHILE COMING AND GOING. Historian: Patient Arrival Mode: Car Bladder Trimmer Required: No Location: LEFT CHEST Quality: PAIN/PRESSURE Radiation: Reports non-radiation Severity: moderate Onset quality: gradual Timing of current episode: intermittent Progression: waxing and waning Chronicity: new Context: Denies recent illness Relieving factors: none Exacerbating factors: none Associated symptoms: Reports chest pain, Reports shortness of breath Treatments prior to arrival: none Past Medical/Family History Physician Review I have reviewed the patient's past medical and family history. Any updates have been documented here. Past Medical History Recent Fever: No Clinical Suspicion of Infectio: No New/Unexplained Change in Ment: No Past Medical History: Hypertension, Diabetes, CHF, A-Fib, Hyperlipedemia Other Medical History: ARRTHYMIA Past Surgical History: None Other Surgery: LOOP RECORDER left chest Social History Smoking Cessation: Never Smoker Counseling Performed: No Alcohol Use: Occasional Any Illegal Drug Use: No TB Exposure/Symptoms: No Physically hurt or threatened: No Other Any Pre-Existing Lines (PICC,: No Is patient up to date on immun: Yes Last Flu: UTD Last Pneumovax: UTD Review of Systems Review of Systems Constitutional: Reports no symptoms EENTM: Reports no symptoms Cardiovascular: Reports as per HPI, Reports chest pain Respiratory: Reports as per HPI, Reports dyspnea Gastrointestinal: Reports no symptoms Genitourinary: Reports no symptoms Musculoskeletal: Reports no symptoms Integumentary: Reports no symptoms Neurological: Reports no symptoms Psychological: Reports no symptoms Endocrine: Reports no symptoms Hematological/Lymphatic: Reports no symptoms Physical Exam Related Data Allergies: Coded Allergies: No Known Drug Allergies (Verified Allergy, Unknown, 09/01/19) Triage Vital Signs Vital Signs Date Time Temp Pulse Resp B/P (MAP) Pulse Ox O2 Delivery O2 Flow Rate FiO2 04/09/20 11:50 98.4 125 18 165/116 98 Vital signs reviewed: Yes Physical Exam CONSTITUTIONAL Constitutional: Present well-developed, Present well-nourished HENT HENT: Present normocephalic, Present atraumatic, Present oropharynx clear/moist, Present nose normal HENT L/R: Present left ext ear normal, Present right ext ear normal EYES Eyes: Reports PERRL, Reports conjunctivae normal NECK Neck: Present ROM normal PULMONARY Pulmonary: Present effort normal, Present breath sounds normal CARDIOVASCULAR Cardiovascular: Present regular rhythm, Present heart sounds normal, Present capillary refill normal, Present normal rate GASTROINTESTINAL Abdominal: Present soft, Present nontender, Present bowel sounds normal GENITOURINARY Genitourinary: Present exam deferred SKIN Skin: Present warm, Present dry MUSCULOSKELETAL Musculoskeletal: Present ROM normal NEUROLOGICAL Neurological: Present alert, Present oriented x 3, Present no gross motor or sensory deficits PSYCHOLOGICAL Psychological: Present mood/affect normal, Present judgement normal Results Laboratory Result Diagram: 04/09/20 1158 04/09/20 1158 Laboratory Laboratory Tests Test 04/09/20 11:58 White Blood Count 3.12 x10e3/uL (4.8-10.8) Red Blood Count 5.36 x10e6/uL (4.3-5.7) Hemoglobin 15.6 g/dL (14.0-18.0) Hematocrit 46.7 % (38.2-49.6) Mean Corpuscular Volume 87.1 fL (81-99) Mean Corpuscular Hemoglobin 29.1 pg (28-32) Mean Corpuscular Hemoglobin Concent 33.4 g/dL (31-35) Red Cell Distribution Width 13.8 % (11.7-14.4) Platelet Count 136 x10e3/uL (140-360) Neutrophils (%) (Auto) 61.0 % (38.7-80.0) Lymphocytes (%) (Auto) 18.6 % (18.0-39.1) Monocytes (%) (Auto) 14.1 % (4.4-11.3) Eosinophils (%) (Auto) 5.4 % (0.0-6.0) Basophils (%) (Auto) 0.6 % (0.0-1.0) Neutrophils # (Auto) 1.9 (2.1-6.9) Lymphocytes # (Auto) 0.6 (1.0-3.2) Monocytes # (Auto) 0.4 (0.2-0.8) Eosinophils # (Auto) 0.2 (0.0-0.4) Basophils # (Auto) 0.0 (0.0-0.1) Absolute Immature Granulocyte (auto 0.01 x10e3/uL (0-0.1) Prothrombin Time 11.6 seconds (11.9-14.5) Prothromb Time International Ratio 0.81 Activated Partial Thromboplast Time 26.1 seconds (23.8-35.5) Sodium Level 133 mmol/L (136-145) Potassium Level 3.9 mmol/L (3.5-5.1) Chloride Level 97 mmol/L (98-107) Carbon Dioxide Level 23 mmol/L (22-29) Anion Gap 16.9 mmol/L (8-16) Blood Urea Nitrogen 23 mg/dL (7-26) Creatinine 2.49 mg/dL (0.72-1.25) Estimat Glomerular Filtration Rate 28 ML/MIN (60-) BUN/Creatinine Ratio 9 (6-25) Glucose Level 494 mg/dL (74-118) Calcium Level 8.8 mg/dL (8.4-10.2) Magnesium Level 1.8 MG/DL (1.3-2.1) Total Bilirubin 0.4 mg/dL (0.2-1.2) Aspartate Amino Transf (AST/SGOT) 16 IU/L (5-34) Alanine Aminotransferase (ALT/SGPT) 15 IU/L (0-55) Alkaline Phosphatase 96 IU/L (40-150) Creatine Kinase 61 IU/L (30-200) Creatine Kinase MB 1.70 ng/mL (0-5.0) Troponin I 0.794 ng/mL (0-0.300) B-Type Natriuretic Peptide 234.3 pg/mL (0-100) Total Protein 6.9 g/dL (6.5-8.1) Albumin 3.0 g/dL (3.5-5.0) Globulin 3.9 g/dL (2.3-3.5) Albumin/Globulin Ratio 0.8 (0.8-2.0) Laboratory Tests Test 04/09/20 11:58 White Blood Count 3.12 x10e3/uL (4.8-10.8) Red Blood Count 5.36 x10e6/uL (4.3-5.7) Hemoglobin 15.6 g/dL (14.0-18.0) Hematocrit 46.7 % (38.2-49.6) Mean Corpuscular Volume 87.1 fL (81-99) Mean Corpuscular Hemoglobin 29.1 pg (28-32) Mean Corpuscular Hemoglobin Concent 33.4 g/dL (31-35) Red Cell Distribution Width 13.8 % (11.7-14.4) Platelet Count 136 x10e3/uL (140-360) Neutrophils (%) (Auto) 61.0 % (38.7-80.0) Lymphocytes (%) (Auto) 18.6 % (18.0-39.1) Monocytes (%) (Auto) 14.1 % (4.4-11.3) Eosinophils (%) (Auto) 5.4 % (0.0-6.0) Basophils (%) (Auto) 0.6 % (0.0-1.0) Neutrophils # (Auto) 1.9 (2.1-6.9) Lymphocytes # (Auto) 0.6 (1.0-3.2) Monocytes # (Auto) 0.4 (0.2-0.8) Eosinophils # (Auto) 0.2 (0.0-0.4) Basophils # (Auto) 0.0 (0.0-0.1) Absolute Immature Granulocyte (auto 0.01 x10e3/uL (0-0.1) Prothrombin Time 11.6 seconds (11.9-14.5) Prothromb Time International Ratio 0.81 Activated Partial Thromboplast Time 26.1 seconds (23.8-35.5) Sodium Level 133 mmol/L (136-145) Potassium Level 3.9 mmol/L (3.5-5.1) Chloride Level 97 mmol/L (98-107) Carbon Dioxide Level 23 mmol/L (22-29) Anion Gap 16.9 mmol/L (8-16) Blood Urea Nitrogen 23 mg/dL (7-26) Creatinine 2.49 mg/dL (0.72-1.25) Estimat Glomerular Filtration Rate 28 ML/MIN (60-) BUN/Creatinine Ratio 9 (6-25) Glucose Level 494 mg/dL (74-118) Calcium Level 8.8 mg/dL (8.4-10.2) Magnesium Level 1.8 MG/DL (1.3-2.1) Total Bilirubin 0.4 mg/dL (0.2-1.2) Aspartate Amino Transf (AST/SGOT) 16 IU/L (5-34) Alanine Aminotransferase (ALT/SGPT) 15 IU/L (0-55) Alkaline Phosphatase 96 IU/L (40-150) Creatine Kinase 61 IU/L (30-200) Creatine Kinase MB 1.70 ng/mL (0-5.0) Troponin I 0.794 ng/mL (0-0.300) B-Type Natriuretic Peptide 234.3 pg/mL (0-100) Total Protein 6.9 g/dL (6.5-8.1) Albumin 3.0 g/dL (3.5-5.0) Globulin 3.9 g/dL (2.3-3.5) Albumin/Globulin Ratio 0.8 (0.8-2.0) Lab results reviewed: Yes Imaging Imaging results reviewed: Yes Impressions Procedure: [id number] DX/CHEST SINGLE (PORTABLE) Exam Date: 04/09/20 Exam Time: 7 REPORT STATUS: Signed TECHNIQUE: Frontal view of the chest. INDICATION: ^Y ^COUGH, SOB, H/O CHF ^[id number] ^[id number] COMPARISON: 09/02/2019 IMPRESSION: Lines and hardware: Stable. Heart and mediastinum: Stable. Lungs and pleura: No focal airspace consolidation. No pleural effusion. No pneumothorax. Soft tissues and bones: No acute abnormality. Signed by: Chino Tracy MD on 04/09/2020 1:56 PM Diagnostics Tests Diagnostic test(s) reviewed: Yes Procedures 12 Lead ECG Interpretation ECG Interpretation : ECG: ECG 1 Bladder Trimmer: Interpreted by ED physician Date: Apr 09, 2020 Time: 12:01 Rhythm: sinus tachycardia Rate: tachycardia (109) QRS axis: left ST segment elevation: V1 (0.5 MM) T waves normal: Yes Clinical Impression: abnormal ECG Critical Care Time Total Critical Care Time (min): 35 Critical care time exclusive o: separately billable procedures Critcal care necessary due to: cardiac failure Critcal care time spent by me: discussion w consultants, discussion w primary provider, interpret cardiac output measures, evaluation patient response to tx, examination of patient, order/perform tx or interventions, order/review laboratory studies, re-evaluation of patient condition Assessment & Plan Medical Decision Making MDM CP AND SOB - CHECK CBC, CHEM'S, ECG, CARDIAC ENZYMES, CXR, COVID SWAB - R/O STEMI/NSTEMI, PNEUMONIA, HYPERGLYCEMIA (OFF MEDS FOR MONTHS), RENAL INSUFF, COVID19 Reassessment Reassessment ELEVATED TROP - SPOKE WITH DR Jim BURRIS - AGREES WITH [facility], WILL SEE PT. SPOKE WITH DR KNAPP FOR ADMISSION - OK WITH DR GALLARDO AND ZITA - I SPOKE WITH BOTH Assessment & Plan Final Impression: (1) Chest pain (2) COVID-19 (3) Hyperglycemia (4) Renal insufficiency (5) Elevated troponin Depart Disposition: ADMITTED Last Vital Signs Date Time Temp Pulse Resp B/P (MAP) Pulse Ox O2 Delivery O2 Flow Rate FiO2 04/09/20 14:31 82 17 183/116 99 04/09/20 12:13 98.5 Home Meds Reported Medications Metformin Hcl (METFORMIN HCL) 500 Mg Tablet, 1000 MG PO BID, TAB 09/02/19 Lisinopril (PRINIVIL) 20 Mg Tablet, 20 MG PO Q12H 09/02/19 Medications in the ED Sodium Chloride 1,000 ml @ 0 mls/hr Q0M STAT IV Last administered on 04/09/20at 12:36; Admin Dose 999 MLS/HR; Start 04/09/20 at 11:56; Stop 04/09/20 at 12:00; Status DC Aspirin 81 mg PRN ONCE PO Last administered on 04/09/20at 12:36; Admin Dose 81 MG; Start 04/09/20 at 12:00; Stop 04/09/20 at 12:06; Status DC Metoprolol Tartrate 25 mg ONCE ONCE PO Last administered on 04/09/20at 12:36; Admin Dose 25 MG; Start 04/09/20 at 12:00; Stop 04/09/20 at 12:06; Status DC Insulin Human Regular 10 unit ONCE ONCE IV Last administered on 04/09/20at 14:01; Admin Dose 10 UNIT; Start 04/09/20 at 14:00; Stop 04/09/20 at 14:02; Status DC Sodium Chloride 1,000 ml @ 0 mls/hr Q0M STAT IV Last administered on 04/09/20at 14:08; Admin Dose 999 MLS/HR; Start 04/09/20 at 13:54; Stop 04/09/20 at 14:02; Status DC Nitroglycerin 1 gm ONCE ONCE TOP Last administered on 04/09/20at 14:30; Admin Dose 1 GM; Start 04/09/20 at 14:15; Stop 04/09/20 at 14:16; Status DC PETER ATKINS MD Apr 09, 2020 14:52
[2020-04-09] MEDS ORDERED: HEPARIN 25,000 UNIT 900 UNIT in DEXTROSE 5% 250ML 250 ML IV SCH (15:15)
[2020-04-09] MEDS ORDERED: HEPARIN SOD (PORCINE) 5,000 UNIT/ML VIAL IV ONE (15:15)
[2020-04-09] MEDS ORDERED: HEPARIN 25,000 UNIT DRIP IV ONE (15:29)
[2020-04-09] MEDS ORDERED: MORPHINE SULFATE 2 MG/ML SYR 1ML IV PRN (15:30)
[2020-04-09] MEDS ORDERED: METOPROLOL TARTRATE 25 MG TAB PO SCH (15:30)
[2020-04-09] MEDS ORDERED: LISINOPRIL 10 MG TAB PO SCH (15:30)
[2020-04-09] MEDS ORDERED: ONDANSETRON HCL INJ 2MG/ML 2ML 2 MG/ML VIAL IV PRN (15:30)
[2020-04-09] MEDS ORDERED: DEXTROSE 50% SYRINGE 50 ML IV PRN (15:30)
[2020-04-09] MEDS ORDERED: NITROGLYCERIN 0.4 MG SUBL SL PRN (15:30)
[2020-04-09] MEDS ORDERED: INSULIN LISPRO 100 UNIT/1 ML 3ML VIAL SQ SCH (16:30)
[2020-04-09] MEDS ORDERED: HYDRALAZINE HCL 20 MG/ML VIAL IV STA (17:47)
[2020-04-09] MEDS ORDERED: NITROGLYCERIN 2% OINT 1 GM PKT TOP SCH (18:00)
--- NOTE | 2020-04-09 19:15 | NUR ---
report given to LY LO. PT TX BEING TX'D TO [facility]. [phone] 22
[2020-04-09 19:32] VITALS: BP 126/83
[2020-04-09 19:39] LABS: CREATINE KINASE MB 1.4 ng/mL (0-5.0)
[2020-04-09] MEDS ORDERED: FAMOTIDINE 20 MG/2 ML VIAL IV SCH (21:00)
[2020-04-10] MEDS ORDERED: ASPIRIN 81 MG ENTERIC COATED PO SCH (09:00)
== END 2020-04-09 21:21 | disposition other institution (70) ==
LOC: ER 11:43 → ERHOLD 15:25 → UNDOADMIN 15:25 → ER 21:21
DX: R06.02 Shortness of breath (principal); R07.9 Chest pain, unspecified; U07.1 COVID-19; R79.89 Other specified abnormal findings of blood chemistry; E11.65 Type 2 diabetes mellitus with hyperglycemia; N28.9 Disorder of kidney and ureter, unspecified; I10 Essential (primary) hypertension; E78.5 Hyperlipidemia, unspecified; I48.91 Unspecified atrial fibrillation; I50.9 Heart failure, unspecified
CPT/HCPCS: 36415; 71045; 80053; 82550; 82553; 82948; 83735; 83880; 84484; 85025; 85610; 85730; 87086; 87635; 93005; 93306; 99284; J0360; J1644; J1817; J7030

== ENCOUNTER 2021-12-30 12:41 | Inpatient (IN) | payer MEDICARE ==
[~2021-12-30] VITALS: Ht 172.7 cm; Wt 74.8 kg
[2021-12-30 13:35] LABS: BASOPHILS % 0.3 % (0.0-1.0); EOSINOPHILS # (AUTO) 0.1 (0.0-0.4); EOSINOPHILS % 2.1 % (0.0-6.0); HEMOGLOBIN 9.6 g/dL (14.0-18.0); LYMPHOCYTES # (AUTO) 0.9 (1.0-3.2); MEAN CORPUSCULAR HEMOGLOBIN 25.2 pg (28-32); MEAN CORPUSCULAR VOLUME 78.7 fL (81-99); MONOCYTES # (AUTO) 0.6 (0.2-0.8); MONOCYTES % 9.6 % (4.4-11.3); NEUTROPHILS # (AUTO) 4.5 (2.1-6.9); NEUTROPHILS % 73.7 % (38.7-80.0); PLATELET COUNT 206 x10e3/uL (140-360); RED BLOOD COUNT 3.81 x10e6/uL (4.3-5.7); RED CELL DISTRIBUTION WIDTH 14.3 % (11.7-14.4)
[2021-12-30 13:46] LABS: ALBUMIN 3.2 g/dL (3.5-5.0); ALBUMIN/GLOBULIN RATIO 0.7 (0.8-2.0); ANION GAP 11.8 mmol/L (8-16); CALCIUM 9.2 mg/dL (8.4-10.2); CREATININE, SERUM 4.05 mg/dL (0.72-1.25); POTASSIUM 4.8 mmol/L (3.5-5.1)
[2021-12-30] MEDS ORDERED: INSULIN REGULAR, HUMAN 100 UNIT/1 ML SQ ONE (14:00)
[2021-12-30] MEDS ORDERED: SODIUM CHLORIDE 0.9% 1000ML 1,000 ML IV ONE (14:00)
[2021-12-30] MEDS ORDERED: DEXTROSE 50% SYRINGE 50 ML IV PRN ×2 (15:00→18:30)
[2021-12-30] MEDS ORDERED: ONDANSETRON HCL INJ 2MG/ML 2ML 2 MG/ML VIAL IV PRN (15:00)
[2021-12-30] MEDS ORDERED: SODIUM CHLORIDE FLUSH 10 ML SYR INJ PRN (15:00)
[2021-12-30 17:47] VITALS: BP 163/87
[2021-12-30 17:53] VITALS: BP 163/87
[2021-12-30 18:02] VITALS: BP 163/87
[2021-12-30] MEDS: SODIUM CHLORIDE 0.9% 1000ML 1,000 ML IV SCH (18:32)
[2021-12-30 19:46] VITALS: BP 160/85
[2021-12-30] MEDS ORDERED: HYDRALAZINE HCL 20 MG/ML VIAL IV PRN (20:15)
[2021-12-30] MEDS ORDERED: LISINOPRIL 20 MG TAB PO ONE (20:15)
[2021-12-30 20:45] VITALS: BP 160/85
[2021-12-30] MEDS: INSULIN LISPRO 100 UNIT/1 ML 3ML VIAL SQ SCH (20:46)
[2021-12-31 00:08] VITALS: BP 145/82
[2021-12-31 04:00] VITALS: BP 160/101
[2021-12-31] MEDS: SODIUM CHLORIDE 0.9% 1000ML 1,000 ML IV SCH ×2 (04:26→14:30)
[2021-12-31] MEDS ORDERED: LOPERAMIDE HCL 2 MG CAP PO PRN (05:00)
[2021-12-31 06:09] LABS: BASOPHILS % 0.3 % (0.0-1.0); EOSINOPHILS # (AUTO) 0.1 (0.0-0.4); EOSINOPHILS % 1.8 % (0.0-6.0); HEMATOCRIT 29.4 % (38.2-49.6); HEMOGLOBIN 9.5 g/dL (14.0-18.0); LYMPHOCYTES # (AUTO) 0.9 (1.0-3.2); LYMPHOCYTES % 12.2 % (18.0-39.1); MEAN CORPUSCULAR HEMOGLOBIN 25.4 pg (28-32); MEAN CORPUSCULAR HGB CONC 32.3 g/dL (31-35); MEAN CORPUSCULAR VOLUME 78.6 fL (81-99); MONOCYTES # (AUTO) 0.7 (0.2-0.8); NEUTROPHILS # (AUTO) 5.5 (2.1-6.9); NEUTROPHILS % 76.3 % (38.7-80.0); PLATELET COUNT 203 x10e3/uL (140-360); RED BLOOD COUNT 3.74 x10e6/uL (4.3-5.7); RED CELL DISTRIBUTION WIDTH 14.2 % (11.7-14.4)
[2021-12-31 06:40] LABS: ALBUMIN 2.9 g/dL (3.5-5.0); ALBUMIN/GLOBULIN RATIO 0.7 (0.8-2.0); ANION GAP 11.6 mmol/L (8-16); CALCIUM 8.9 mg/dL (8.4-10.2); CREATININE, SERUM 3.55 mg/dL (0.72-1.25); MAGNESIUM 1.6 MG/DL (1.3-2.1); POTASSIUM 4.6 mmol/L (3.5-5.1)
[2021-12-31 07:03] LABS: FERRITIN 289.19 ng/mL (21.81-274.66); THYROID STIMULATING HORMONE 1.282 uIU/mL (0.350-4.940)
[2021-12-31] MEDS: INSULIN LISPRO 100 UNIT/1 ML 3ML VIAL SQ SCH ×3 (07:30→16:27)
[2021-12-31 07:43] VITALS: BP 115/87
[2021-12-31 08:00] VITALS: BP 115/87
[2021-12-31] MEDS ORDERED: INSULIN GLARGINE 100 UNITS/ML VIAL SQ SCH (09:00)
[2021-12-31] MEDS ORDERED: DOCUSATE SODIUM 100 MG CAP PO SCH (09:00)
[2021-12-31] MEDS ORDERED: LISINOPRIL 20 MG TAB PO SCH (09:00)
[2021-12-31] MEDS ORDERED: SENNOSIDES 8.6 MG TAB PO SCH (09:00)
[2021-12-31] MEDS ORDERED: ASPIRIN 325 MG TAB PO ONE (10:15)
[2021-12-31] MEDS ORDERED: CLOPIDOGREL BISULFATE 75 MG TAB PO SCH (10:15)
[2021-12-31 10:45] VITALS: BP 140/85
[2021-12-31] MEDS ORDERED: MAGNESIUM SULFATE 2GM/50ML 50 ML IV ONE ×2 (11:15→12:15)
[2021-12-31] MEDS: APIXABAN 5 MG TABLET PO SCH ×2 (11:37→16:26)
[2021-12-31 15:29] VITALS: BP 126/81
[2021-12-31] MEDS ORDERED: SODIUM BICARBONATE 650 MG TAB PO SCH (17:00)
[2021-12-31] MEDS ORDERED: APIXABAN 5 MG TABLET PO SCH (17:00)
[2021-12-31] MEDS ORDERED: CARVEDILOL 12.5 MG TAB PO SCH (17:00)
[2021-12-31] MEDS ORDERED: ATORVASTATIN 40 MG TAB PO SCH (21:00)
[2022-01-01] MEDS ORDERED: AMIODARONE HCL 200 MG TAB PO SCH (09:00)
[2022-01-01] MEDS ORDERED: ASPIRIN 81 MG CHEW TAB PO SCH (09:00)
== END 2021-12-31 17:42 | disposition short-term general hospital (02) | DRG 65 ==
LOC: ER 12:50 → ERHOLD 15:00 → MED/SURG3 16:38
PROVIDERS: ADMIT Internal Medicine; ATTEND Internal Medicine
DX: I63.542 Cerebral infarction due to unspecified occlusion or stenosis of left cerebellar artery (principal); N17.9 Acute kidney failure, unspecified; E87.2 Acidosis; I13.0 Hypertensive heart and chronic kidney disease with heart failure and stage 1 through stage 4 chronic kidney disease, or unspecified chronic kidney disease; I49.3 Ventricular premature depolarization; E78.5 Hyperlipidemia, unspecified; I48.0 Paroxysmal atrial fibrillation; Z95.2 Presence of prosthetic heart valve; E11.22 Type 2 diabetes mellitus with diabetic chronic kidney disease; E11.65 Type 2 diabetes mellitus with hyperglycemia; I16.0 Hypertensive urgency; D50.9 Iron deficiency anemia, unspecified; N25.89 Other disorders resulting from impaired renal tubular function; N18.30 Chronic kidney disease, stage 3 unspecified; E83.42 Hypomagnesemia; Z91.19 Patient's noncompliance with other medical treatment and regimen; I50.9 Heart failure, unspecified
CPT/HCPCS: 36415; 70450; 70551; 76770; 80053; 82607; 82728; 82746; 82948; 83036; 83540; 83605; 83735; 84443; 84466; 84484; 85025; 85045; 93005; 94799; 97139; 99284; J0360; J1815; J1817; J3475; J7030; U0002

== ENCOUNTER 2022-05-01 00:32 | Emergency (ER) | payer MEDICARE ==
[~2022-05-01] VITALS: Ht 172.7 cm; Wt 74.8 kg
[2022-05-01] MEDS ORDERED: HYDRALAZINE HCL 20 MG/ML VIAL IV STA (00:41)
[2022-05-01 01:12] LABS: BASOPHILS % 0.5 % (0.0-1.0); EOSINOPHILS # (AUTO) 0.3 (0.0-0.4); EOSINOPHILS % 4.9 % (0.0-6.0); HEMATOCRIT 36.1 % (38.2-49.6); HEMOGLOBIN 11.6 g/dL (14.0-18.0); LYMPHOCYTES # (AUTO) 0.9 (1.0-3.2); LYMPHOCYTES % 16.4 % (18.0-39.1); MEAN CORPUSCULAR HEMOGLOBIN 27.7 pg (28-32); MEAN CORPUSCULAR HGB CONC 32.1 g/dL (31-35); MEAN CORPUSCULAR VOLUME 86.2 fL (81-99); MONOCYTES # (AUTO) 0.4 (0.2-0.8); MONOCYTES % 7.7 % (4.4-11.3); NEUTROPHILS % 70.1 % (38.7-80.0); PLATELET COUNT 188 x10e3/uL (140-360); RED BLOOD COUNT 4.19 x10e6/uL (4.3-5.7); RED CELL DISTRIBUTION WIDTH 14.6 % (11.7-14.4)
[2022-05-01 01:20] LABS: INR 0.93; PROTHROMBIN TIME 13.3 seconds (11.9-14.5)
[2022-05-01 01:21] LABS: PARTIAL THROMBOPLASTIN TIME 30.3 seconds (23.8-35.5)
[2022-05-01 01:27] LABS: ALBUMIN 3.3 g/dL (3.5-5.0); ALBUMIN/GLOBULIN RATIO 0.8 (0.8-2.0); CREATININE, SERUM 5.13 mg/dL (0.72-1.25)
[2022-05-01 05:17] VITALS: BP 184/92
== END 2022-05-01 05:24 | disposition other institution (70) ==
LOC: ER 00:38
DX: I97.618 Postprocedural hemorrhage of a circulatory system organ or structure following other circulatory system procedure (principal); N28.9 Disorder of kidney and ureter, unspecified; I10 Essential (primary) hypertension; R94.31 Abnormal electrocardiogram [ECG] [EKG]
CPT/HCPCS: 36415; 80053; 85025; 85610; 85730; 93005; 99284; J0360

== ENCOUNTER 2025-03-01 20:28 | Emergency (ER) | payer MEDICARE ==
[~2025-03-01] VITALS: Ht 172.7 cm; Wt 79.4 kg
[~2025-03-01 20:28] MED LIST changes: +ELIQUIS5 MG PO; +MINOXIDIL2.5 MG PO; +NIFEDIPINE ER30 M1 PO; +TORSEMIDE20 MG PO
[2025-03-01] MEDS ORDERED: ONDANSETRON HCL 4 MG ORAL DISINTEGRATING TAB PO STA (21:34)
[2025-03-01] MEDS ORDERED: KETOROLAC TROMETHAMINE 60 MG/2 ML VIAL IM STA (21:34)
[2025-03-01 23:08] VITALS: PULSE 78; RESP 18; TEMP 98.1; O2SAT 98
== END 2025-03-01 23:03 | disposition home or self-care (01) ==
LOC: ER 20:47
DX: T82.838A Hemorrhage due to vascular prosthetic devices, implants and grafts, initial encounter (principal); I12.9 Hypertensive chronic kidney disease with stage 1 through stage 4 chronic kidney disease, or unspecified chronic kidney disease; E11.22 Type 2 diabetes mellitus with diabetic chronic kidney disease; N18.9 Chronic kidney disease, unspecified; Z99.2 Dependence on renal dialysis; E78.5 Hyperlipidemia, unspecified; Z95.4 Presence of other heart-valve replacement
CPT/HCPCS: 99283

== ENCOUNTER → 2025-04-08 | Outpatient (REF) | payer MEDICARE | LOC: US 07:02 | PROVIDERS: ATTEND Internal Medicine Nephrology | DX: N18.5 Chronic kidney disease, stage 5 (principal) | CPT/HCPCS: 76700 ==

== ENCOUNTER 2025-05-20 21:05 | Emergency (ER) | payer MEDICARE ==
[~2025-05-20] VITALS: Ht 172.7 cm; Wt 81.2 kg
[2025-05-20 21:30] VITALS: TEMP 98.2
[2025-05-20 22:00] VITALS: PULSE 83; RESP 19
[2025-05-20 22:14] LABS: BASOPHILS % 0.5 % (0.0-1.0); EOSINOPHILS % 4.3 % (0.0-6.0); LYMPHOCYTES % 17.9 % (18.0-39.1); MONOCYTES % 6.9 % (4.4-11.3); NEUTROPHILS % 69.8 % (38.7-80.0); RED CELL DISTRIBUTION WIDTH 16.4 % (11.7-14.4)
[2025-05-20] MEDS ORDERED: SODIUM CHLORIDE FLUSH 10 ML SYR IV PRN (22:15)
[2025-05-20 22:26] LABS: EST GLOMERULAR FILTRATION RATE 4.0 ML/MIN (>=60)
[2025-05-20 23:49] VITALS: BP 126/82; PULSE 83; RESP 18; O2SAT 97
== END 2025-05-20 23:29 | disposition home or self-care (01) ==
LOC: ER 22:10
DX: R10.32 Left lower quadrant pain (principal); R19.7 Diarrhea, unspecified; I12.0 Hypertensive chronic kidney disease with stage 5 chronic kidney disease or end stage renal disease; E11.22 Type 2 diabetes mellitus with diabetic chronic kidney disease; E11.65 Type 2 diabetes mellitus with hyperglycemia; N18.6 End stage renal disease; Z99.2 Dependence on renal dialysis; E83.51 Hypocalcemia; E78.5 Hyperlipidemia, unspecified; Z95.810 Presence of automatic (implantable) cardiac defibrillator; Z95.4 Presence of other heart-valve replacement; R94.31 Abnormal electrocardiogram [ECG] [EKG]
CPT/HCPCS: 36415; 74176; 80053; 83690; 84484; 85025; 93005; 99284

== ENCOUNTER 2025-05-24 06:19 | Inpatient (IN) | payer MEDICARE ==
[2025-05-24] VITALS (8 sets, daily range): BP systolic 135–148; BP diastolic 92–101; PULSE 79–83; RESP 18–20; TEMP 98–98.2; O2SAT 95–99
[~2025-05-24] VITALS: Ht 172.7 cm; Wt 81.6 kg
[2025-05-24 07:02] LABS: BASOPHILS % 0.3 % (0.0-1.0); EOSINOPHILS % 3.6 % (0.0-6.0); LYMPHOCYTES % 13.4 % (18.0-39.1); MONOCYTES % 6.3 % (4.4-11.3); NEUTROPHILS % 75.9 % (38.7-80.0); RED CELL DISTRIBUTION WIDTH 16.6 % (11.7-14.4)
[2025-05-24 07:23] LABS: EST GLOMERULAR FILTRATION RATE 3.0 ML/MIN (>=60)
[2025-05-24] MEDS: SODIUM BICARBONATE 8.4% INJ 50 ML SYR IV STA (08:09)
[2025-05-24] MEDS: CALCIUM GLUC 1 G/50 ML NACL 50 ML IV SCH (08:14)
[2025-05-24] MEDS: VANCOMYCIN HCL 125 MG CAPSULE PO SCH (12:11)
[2025-05-24] MEDS ORDERED: SODIUM CHLORIDE 0.9% 1000ML 2,000 ML IV PRN (12:45)
[2025-05-24] MEDS: CALCIUM CARBONATE 500 MG CHEWABLE TABS PO SCH (13:51)
[2025-05-24] MEDS ORDERED: SEVELAMER CARB800 MG PO (15:42)
[2025-05-24] MEDS ORDERED: ACETAMINOPHEN 325 MG TAB PO PRN (15:45)
[2025-05-24] MEDS ORDERED: MELATONIN 5 MG TABLET PO PRN (15:45)
[2025-05-24] MEDS ORDERED: ALBUTEROL/IPRATROPIUM 3 ML NEB NEB PRN (15:45)
[2025-05-24] MEDS ORDERED: BENZONATATE 100 MG CAP PO PRN (15:45)
[2025-05-24] MEDS ORDERED: HYDRALAZINE HCL 20 MG/ML VIAL IV PRN (15:45)
[2025-05-24] MEDS ORDERED: DIPHENHYDRAMINE HCL 25 MG CAP PO PRN (15:45)
[2025-05-24] MEDS ORDERED: ONDANSETRON HCL INJ 2MG/ML 2ML 2 MG/ML VIAL IV PRN (15:45)
[2025-05-24] MEDS ORDERED: LIDOCAINE 4% PATCH TP PRN (15:45)
[2025-05-24] MEDS ORDERED: DEXTROSE 50% SYRINGE 50 ML IV PRN (15:45)
[2025-05-24] MEDS ORDERED: SIMETHICONE 80 MG CHEW PO PRN (15:45)
[2025-05-24] MEDS ORDERED: DOCUSATE SODIUM 100 MG CAP PO PRN (15:45)
[2025-05-24] MEDS ORDERED: LOSARTAN POTASS25 MG PO (15:57)
[2025-05-24] MEDS ORDERED: TRICOR145 MG PO (16:14)
[2025-05-24] MEDS ORDERED: ROSUVASTATIN CA20 MG PO (16:14)
[2025-05-24] MEDS ORDERED: GLIPIZIDE ER5 MG PO (16:14)
[2025-05-24] MEDS ORDERED: DICYCLOMINE HCL10 MG PO (16:14)
[2025-05-24] MEDS: SODIUM BICARBONATE 650 MG TAB PO SCH (17:47)
[2025-05-24] MEDS: DICYCLOMINE HCL 10 MG CAP PO SCH (17:47)
[2025-05-24] MEDS ORDERED: IOPAMIDOL 370 MG/ML 100 ML INFUS..BTL INJ ONE (18:41)
[2025-05-24 19:02] LABS: CDIFF AG QUIK CHEK **POSITIVE** (NEGATIVE); CDIFF TOX QUIK CHEK NEGATIVE (NEGATIVE)
[2025-05-25] VITALS (12 sets, daily range): BP systolic 112–148; BP diastolic 80–93; PULSE 70–83; RESP 16–20; TEMP 97.2–98.6; O2SAT 95–100
[2025-05-25 06:37] LABS: BASOPHILS % 0.2 % (0.0-1.0); EOSINOPHILS % 1.9 % (0.0-6.0); LYMPHOCYTES % 13.3 % (18.0-39.1); MONOCYTES % 7.3 % (4.4-11.3); NEUTROPHILS % 76.7 % (38.7-80.0); RED CELL DISTRIBUTION WIDTH 16.2 % (11.7-14.4)
[2025-05-25 06:54] LABS: EST GLOMERULAR FILTRATION RATE 3 ML/MIN (>=60); PHOSPHORUS 9.0 MG/DL (2.3-4.7)
[2025-05-25] MEDS: CALCITRIOL 0.25 MCG CAP PO SCH (08:22)
[2025-05-25] MEDS: PANTOPRAZOLE SOD 40 MG TABEC PO SCH (08:22)
[2025-05-25] MEDS ORDERED: BISMUTH SUBSALICYLATE 262 MG TAB PO PRN (15:00)
[2025-05-25] MEDS: CHOLESTYRAMINE 4 GM PACKET PO SCH (17:07)
[2025-05-26] VITALS (13 sets, daily range): BP systolic 130–163; BP diastolic 75–95; PULSE 80–85; RESP 16–20; TEMP 97.3–98.7; O2SAT 96–100
[2025-05-27] VITALS (9 sets, daily range): BP systolic 135–154; BP diastolic 62–99; PULSE 58–86; RESP 16–20; TEMP 98–98.8; O2SAT 92–100
[2025-05-27 08:54] LABS: BASOPHILS % 0.5 % (0.0-1.0); EOSINOPHILS % 3.0 % (0.0-6.0); LYMPHOCYTES % 9.1 % (18.0-39.1); MONOCYTES % 7.5 % (4.4-11.3); NEUTROPHILS % 79.4 % (38.7-80.0); RED CELL DISTRIBUTION WIDTH 16.2 % (11.7-14.4)
[2025-05-27 09:52] LABS: EST GLOMERULAR FILTRATION RATE 4.0 ML/MIN (>=60)
[2025-05-27] MEDS: PEG (High)/E-LYTE SOLN 4,000 ML BTL PO ONE (15:31)
[2025-05-27] MEDS: NIFEDIPINE CR 30 MG TAB PO SCH (20:36)
[2025-05-28] VITALS (10 sets, daily range): BP systolic 121–147; BP diastolic 79–99; PULSE 77–84; RESP 16–20; TEMP 97.6–98.6; O2SAT 93–100
[2025-05-28 05:13] LABS: HEPATITIS B CORE AB TOTAL Negative; HEPATITIS B SURFACE AB QUANT 114.0; HEPATITIS B SURFACE AG (P) Negative
[2025-05-28 06:43] LABS: EST GLOMERULAR FILTRATION RATE 6.0 ML/MIN (>=60)
[2025-05-29] VITALS (9 sets, daily range): BP systolic 102–153; BP diastolic 70–93; PULSE 55–84; RESP 16–20; TEMP 97.6–98.7; O2SAT 93–100
[2025-05-29] MEDS ORDERED: FAMOTIDINE 20 MG/2 ML VIAL IV ONE (14:32)
[2025-05-29] MEDS ORDERED: FENTANYL CITRATE/PF 100MCG/2 ML INJ ONE (14:32)
[2025-05-29] MEDS ORDERED: LIDOCAINE HCL 2% LOCAL INJ 5 ML SDV VIAL INJ ONE (14:32)
[2025-05-29] MEDS ORDERED: PROPOFOL IV EMULSION 10 MG/ML 20 ML VIAL ONE (14:32)
[2025-05-29] MEDS ORDERED: GLYCOPYRROLATE INJ 0.2 MG/ML VIAL ONE (14:32)
[2025-05-29] MEDS ORDERED: ETOMIDATE 40 MG/ 20ML VIAL IV ONE (14:43)
[2025-05-29] MEDS ORDERED: EPHEDRINE SULFATE INJ 50 MG/ML VIAL ONE (15:01)
[2025-05-30 04:00] VITALS: BP 120/79; PULSE 80; RESP 20; TEMP 98.1; O2SAT 99
[2025-05-30 07:38] VITALS: PULSE 84; RESP 16; O2SAT 97
[2025-05-30 08:03] VITALS: BP 119/75; PULSE 81; RESP 17; TEMP 97.9; O2SAT 98
[2025-05-30 08:44] LABS: EST GLOMERULAR FILTRATION RATE 6.0 ML/MIN (>=60)
[2025-05-30 08:45] VITALS: BP 119/75; PULSE 81; RESP 17; TEMP 97.9; O2SAT 98
[2025-05-30 11:06] VITALS: BP 128/82; PULSE 82; RESP 17; TEMP 97.3; O2SAT 98
[2025-05-30] MEDS: ALBUMIN 25% 12.5GM 0.25 GM/ML BTL IV PRN (11:07)
[2025-05-30 14:08] VITALS: PULSE 85; RESP 16; O2SAT 98
== END 2025-05-30 15:30 | disposition home or self-care (01) | DRG 682 ==
LOC: ER 06:20 → ERHOLD 08:01 → MED/SURG3 10:22 → OBSVTOIN 16:15
PROVIDERS: ADMIT Internal Medicine; ATTEND Internal Medicine
PROC: 5A1D70Z Performance of Urinary Filtration, Intermittent, Less than 6 Hours Per Day (ICD-10-PCS; 2025-05-28)
PROC: 0DBN8ZZ Excision of Sigmoid Colon, Via Natural or Artificial Opening Endoscopic (ICD-10-PCS; 2025-05-29)
PROC: 0DBE8ZX Excision of Large Intestine, Via Natural or Artificial Opening Endoscopic, Diagnostic (ICD-10-PCS; 2025-05-29)
PROC: 0DB68ZX Excision of Stomach, Via Natural or Artificial Opening Endoscopic, Diagnostic (ICD-10-PCS; principal; 2025-05-29 15:00)
PROC: 0DB98ZX Excision of Duodenum, Via Natural or Artificial Opening Endoscopic, Diagnostic (ICD-10-PCS; 2025-05-29 15:00)
PROC: 0DBL8ZZ Excision of Transverse Colon, Via Natural or Artificial Opening Endoscopic (ICD-10-PCS; 2025-05-29 15:00)
DX: I12.0 Hypertensive chronic kidney disease with stage 5 chronic kidney disease or end stage renal disease (principal); N18.6 End stage renal disease; E87.20 Acidosis, unspecified; J90 Pleural effusion, not elsewhere classified; E83.51 Hypocalcemia; K52.9 Noninfective gastroenteritis and colitis, unspecified; E11.22 Type 2 diabetes mellitus with diabetic chronic kidney disease; E78.5 Hyperlipidemia, unspecified; E87.5 Hyperkalemia; I25.10 Atherosclerotic heart disease of native coronary artery without angina pectoris; I49.3 Ventricular premature depolarization; I49.8 Other specified cardiac arrhythmias; K64.8 Other hemorrhoids; K57.30 Diverticulosis of large intestine without perforation or abscess without bleeding; K63.5 Polyp of colon; K29.70 Gastritis, unspecified, without bleeding; Z22.1 Carrier of other intestinal infectious diseases; K44.9 Diaphragmatic hernia without obstruction or gangrene; Z79.01 Long term (current) use of anticoagulants; Z79.84 Long term (current) use of oral hypoglycemic drugs; Z95.0 Presence of cardiac pacemaker; Z99.2 Dependence on renal dialysis; Z83.3 Family history of diabetes mellitus; Z82.49 Family history of ischemic heart disease and other diseases of the circulatory system
CPT/HCPCS: 36415; 43239; 45378; 45385; 74177; 80048; 80053; 82948; 83735; 84100; 84443; 85025; 86704; 86706; 87045; 87324; 87340; 87449; 88305; 93005; 94799; 99252; 99284; J1308; J2003; J2470; J7030; Q9967

== ENCOUNTER 2025-08-13 13:44 | Inpatient (IN) | payer MEDICARE ==
[2025-08-13] VITALS (14 sets, daily range): BP systolic 141–177; BP diastolic 82–127; PULSE 25–98; RESP 14–21; TEMP 97.9–98.6; O2SAT 72–100
[~2025-08-13] VITALS: Ht 172.7 cm; Wt 81.6 kg
[~2025-08-13 13:44] MED LIST changes: +DICYCLOMINE HCL10 MG PO; +GLIPIZIDE ER5 MG PO; +LOSARTAN POTASS25 MG PO; +ROSUVASTATIN CA20 MG PO; +SEVELAMER CARB800 MG PO; +TRICOR145 MG PO
[2025-08-13 15:26] LABS: BASOPHILS % 0.4 % (0.0-1.0); EOSINOPHILS % 3.1 % (0.0-6.0); LYMPHOCYTES % 15.2 % (18.0-39.1); MONOCYTES % 7.1 % (4.4-11.3); NEUTROPHILS % 73.6 % (38.7-80.0); RED CELL DISTRIBUTION WIDTH 17.4 % (11.7-14.4)
[2025-08-13 15:53] LABS: EST GLOMERULAR FILTRATION RATE 3.0 ML/MIN (>=60)
[2025-08-13] MEDS ORDERED: CALCIUM GLUCONATE 10% INJ 13.95 MEQ in SODIUM CHLORIDE 0.9% 100 ML IV ONE (16:15)
[2025-08-13] MEDS: DEXTROSE 50% SYRINGE 50 ML IV STA (16:45)
[2025-08-13] MEDS: INSULIN REGULAR, HUMAN 100 UNIT/1 ML IV ONE (16:48)
[2025-08-13] MEDS ORDERED: LIDOCAINE 4% PATCH TP PRN (17:00)
[2025-08-13] MEDS ORDERED: ONDANSETRON HCL INJ 2MG/ML 2ML 2 MG/ML VIAL IV PRN (17:00)
[2025-08-13] MEDS ORDERED: SIMETHICONE 80 MG CHEW PO PRN (17:00)
[2025-08-13] MEDS ORDERED: DOCUSATE SODIUM 100 MG CAP PO PRN (17:00)
[2025-08-13] MEDS ORDERED: BENZONATATE 100 MG CAP PO PRN (17:00)
[2025-08-13] MEDS ORDERED: MELATONIN 5 MG TABLET PO PRN (17:00)
[2025-08-13] MEDS ORDERED: ALBUTEROL/IPRATROPIUM 3 ML NEB NEB PRN (17:00)
[2025-08-13] MEDS ORDERED: DIPHENHYDRAMINE HCL 25 MG CAP PO PRN (17:00)
[2025-08-13] MEDS ORDERED: HYDRALAZINE HCL 20 MG/ML VIAL IV PRN (17:00)
[2025-08-13] MEDS ORDERED: CALCIUM GLUC 1 G/50 ML NACL 150 ML IV ONE (17:00)
[2025-08-13] MEDS ORDERED: ACETAMINOPHEN 325 MG TAB PO PRN (17:00)
[2025-08-13] MEDS ORDERED: DEXTROSE 50% SYRINGE 50 ML IV PRN ×2 (17:00→17:30)
[2025-08-13] MEDS: SODIUM BICARBONATE 8.4% INJ 50 ML SYR IV STA (17:02)
[2025-08-13] MEDS: CALCIUM GLUC 1 G/50 ML NACL 50 ML IV SCH (17:04)
[2025-08-13] MEDS: SOD POLYSTYRENE SULFONATE SUSP 15 GM/60 ML BTL PO ONE (17:10)
[2025-08-13] MEDS: ALBUTEROL SULF 0.083% NEB SOLN 3 ML NEB NEB STA (17:50)
[2025-08-13] MEDS ORDERED: SODIUM CHLORIDE 0.9% 1000ML 2,000 ML IV PRN (19:00)
[2025-08-13] MEDS ORDERED: ALBUMIN 25% 12.5GM 0.25 GM/ML BTL IV PRN (19:00)
[2025-08-13] MEDS: HYDRALAZINE HCL 25 MG TAB PO SCH (19:09)
[2025-08-13] MEDS: SEVELAMER CARBONATE 800 MG TAB PO SCH (19:09)
[2025-08-13] MEDS: SODIUM BICARBONATE 650 MG TAB PO SCH (19:10)
[2025-08-13] MEDS: INSULIN LISPRO 100 UNIT/1 ML 3ML VIAL SQ SCH (21:00)
[2025-08-14] VITALS (23 sets, daily range): BP systolic 91–160; BP diastolic 60–98; PULSE 80–86; RESP 15–26; TEMP 98–98.1; O2SAT 93–100
[2025-08-14 05:36] LABS: BASOPHILS % 0.6 % (0.0-1.0); EOSINOPHILS % 2.8 % (0.0-6.0); LYMPHOCYTES % 18.2 % (18.0-39.1); MONOCYTES % 7.8 % (4.4-11.3); NEUTROPHILS % 70.0 % (38.7-80.0); RED CELL DISTRIBUTION WIDTH 17.2 % (11.7-14.4)
[2025-08-14 06:17] LABS: EST GLOMERULAR FILTRATION RATE 5.0 ML/MIN (>=60)
[2025-08-14 07:11] LABS: PHOSPHORUS 6.2 MG/DL (2.3-4.7)
[2025-08-14] MEDS: PANTOPRAZOLE SOD 40 MG TABEC PO SCH (07:39)
[2025-08-15] VITALS (16 sets, daily range): BP systolic 83–138; BP diastolic 47–94; PULSE 80–100; RESP 13–21; TEMP 97.5–98.2; O2SAT 58–98
[2025-08-15 05:38] LABS: BASOPHILS % 0.8 % (0.0-1.0); EOSINOPHILS % 6.5 % (0.0-6.0); LYMPHOCYTES % 18.6 % (18.0-39.1); MONOCYTES % 9.8 % (4.4-11.3); NEUTROPHILS % 64.0 % (38.7-80.0); RED CELL DISTRIBUTION WIDTH 17.2 % (11.7-14.4)
[2025-08-15 05:51] LABS: EST GLOMERULAR FILTRATION RATE 7.0 ML/MIN (>=60)
[2025-08-15] MEDS: CALCITRIOL 0.25 MCG CAP PO SCH (08:00)
[2025-08-15] MEDS: APIXABAN 2.5 MG TABLET PO SCH (10:00)
[2025-08-15 11:31] LABS: HEPATITIS B SURFACE AB QUANT 85.5 mIU/mL (Immunity>10); HEPATITIS B SURFACE AG (P) Negative (Negative)
[2025-08-15] MEDS ORDERED: ALBUMIN 25% 12.5GM 0.25 GM/ML BTL IV PRN (14:00)
[2025-08-15] MEDS ORDERED: SODIUM CHLORIDE 0.9% 1000ML 2,000 ML IV PRN (14:00)
[2025-08-15] MEDS: ATORVASTATIN 40 MG TAB PO SCH (20:23)
[2025-08-15] MEDS ORDERED: IOPAMIDOL 370 MG/ML 100 ML INFUS..BTL INJ ONE (20:46)
[2025-08-16] VITALS (12 sets, daily range): BP systolic 84–135; BP diastolic 54–87; PULSE 43–98; RESP 10–21; TEMP 98.1; O2SAT 92–100
[2025-08-16 06:31] LABS: BASOPHILS % 0.7 % (0.0-1.0); EOSINOPHILS % 7.0 % (0.0-6.0); LYMPHOCYTES % 14.3 % (18.0-39.1); MONOCYTES % 10.5 % (4.4-11.3); NEUTROPHILS % 67.0 % (38.7-80.0); RED CELL DISTRIBUTION WIDTH 17.4 % (11.7-14.4)
[2025-08-16 07:28] LABS: EST GLOMERULAR FILTRATION RATE 10.0 ML/MIN (>=60)
[2025-08-16] MEDS: SOD POLYSTYRENE SULFONATE SUSP 15 GM/60 ML BTL PO ONE (08:01)
[2025-08-16] MEDS: ASPIRIN 81 MG ENTERIC COATED PO SCH (08:01)
[2025-08-16] MEDS: APIXABAN 2.5 MG TABLET PO SCH (08:01)
[2025-08-16] MEDS ORDERED: APIXABAN 5 MG TABLET PO SCH (09:00)
== END 2025-08-16 16:10 | disposition home or self-care (01) | DRG 64 ==
LOC: ER 14:46 → ERHOLD 16:12 → ICU 18:47 → MED/SURG3 08-16 11:23
PROVIDERS: ADMIT Internal Medicine; ATTEND Internal Medicine
PROC: 5A1D70Z Performance of Urinary Filtration, Intermittent, Less than 6 Hours Per Day (ICD-10-PCS; principal; 2025-08-15)
DX: I63.9 Cerebral infarction, unspecified (principal); G92.8 Other toxic encephalopathy; N18.6 End stage renal disease; I13.2 Hypertensive heart and chronic kidney disease with heart failure and with stage 5 chronic kidney disease, or end stage renal disease; E87.20 Acidosis, unspecified; I48.92 Unspecified atrial flutter; I50.32 Chronic diastolic (congestive) heart failure; J98.11 Atelectasis; E11.22 Type 2 diabetes mellitus with diabetic chronic kidney disease; I65.21 Occlusion and stenosis of right carotid artery; E83.51 Hypocalcemia; D50-D89 Diseases of the blood and blood-forming organs and certain disorders involving the immune mechanism; D69.59 Other secondary thrombocytopenia; Z99.2 Dependence on renal dialysis; I25.10 Atherosclerotic heart disease of native coronary artery without angina pectoris; I48.91 Unspecified atrial fibrillation; E87.5 Hyperkalemia; R16.1 Splenomegaly, not elsewhere classified; E87.70 Fluid overload, unspecified; E78.5 Hyperlipidemia, unspecified; Z91.158 Patient's noncompliance with renal dialysis for other reason; Z79.84 Long term (current) use of oral hypoglycemic drugs; Z95.810 Presence of automatic (implantable) cardiac defibrillator; Z95.2 Presence of prosthetic heart valve; Z83.3 Family history of diabetes mellitus; Z82.49 Family history of ischemic heart disease and other diseases of the circulatory system
CPT/HCPCS: 36415; 70450; 70496; 70498; 71045; 80048; 80053; 82948; 83735; 83880; 84100; 84484; 85025; 86706; 87040; 87340; 93005; 93306; 94640; 94799; 95812; 96372; J0612; J2470; J7030; J7050; J7799; Q9967